=== PATIENT | female | born 1955 | race Caucasian/White ===

== ENCOUNTER 2016-03-18 19:58 | Inpatient (IN) | payer OTHER ==
[~2016-03-18] VITALS: Ht 175.3 cm; Wt 128.6 kg
[2016-03-18] MEDS ORDERED: METHYLPRED SOD SUCC 125 MG/2 ML VIAL ONE (20:17)
[2016-03-18] MEDS ORDERED: DUONEB INH ONE (20:21)
[2016-03-18] MEDS ORDERED: PHARMACY TO DOSE ANTIBIOTIC XX ONE (21:40)
[2016-03-18] MEDS ORDERED: SALINE FLUSH 10 ML FLUSH PRN (21:55)
[2016-03-18] MEDS ORDERED: BISACODYL 10 MG SUPP RECTAL PRN (21:55)
[2016-03-18] MEDS ORDERED: BISACODYL EC 5 MG TAB PO PRN (21:55)
[2016-03-19] VITALS (33 sets, daily range): BP systolic 104–180; RESP 14–38; TEMP 97.9–98.4; BMI 46.2
[2016-03-19] MEDS: DUONEB INH SCH ×7 (02:18→23:16)
[2016-03-19] MEDS: ENOXAPARIN 150 MG/ML SYR SUBQ SCH ×2 (02:29→11:35)
[2016-03-19] MEDS: METHYLPRED SOD SUCC 125 MG/2 ML VIAL IV SCH ×4 (02:35→18:17)
[2016-03-19] MEDS: SODIUM CHLORIDE 0.9% FLUSH BAG 500 ML IV SCH (06:00)
[2016-03-19] MEDS ORDERED: *PINK BRACELET XX ONE (06:40)
[2016-03-19] MEDS: *HOME MEDS KEPT IN PHARMACY* BIN 2 XX SCH ×2 (07:30→20:00)
[2016-03-19] MEDS: LEVOTHYROXINE 0.125 MG TAB PO SCH (07:33)
[2016-03-19] MEDS: SALINE FLUSH 10 ML FLUSH SCH ×2 (07:34→21:18)
[2016-03-19] MEDS: THEOPHYLLINE SR 200 MG CAP PO SCH (08:21)
[2016-03-19] MEDS: TUSSIONEX SUSP UDC PO SCH ×2 (08:21→21:17)
[2016-03-19] MEDS: FLUTICASONE 0.05% NA BTL NARE EACH SCH (08:22)
[2016-03-19] MEDS: CITALOPRAM 20 MG TAB PO SCH (08:22)
[2016-03-19] MEDS: MULTIVITS/MINERALS (THERAGRAN M) TAB PO SCH (08:22)
[2016-03-19] MEDS ORDERED: OPTIRAY 350 100 ML VIAL HMH IV ONE (11:11)
[2016-03-19] MEDS ORDERED: Furosemide 20 MG/2 ML VIAL IV ONE ×2 (12:50→15:00)
[2016-03-19] MEDS: ALPRAZOLAM 0.25 MG TAB PO SCH ×2 (18:19→21:17)
[2016-03-19] MEDS ORDERED: MISSING DOSE XX ONE (20:55)
[2016-03-19] MEDS ORDERED: NINTEDANIB 150 MG PO SCH ×2 (22:35→22:40)
[2016-03-19] MEDS: *HOME MEDS IN MED CART XX SCH (22:36)
[2016-03-19] MEDS: NINTEDANIB 150 MG PO SCH (22:53)
[2016-03-20] VITALS (31 sets, daily range): BP systolic 107–172; RESP 15–28; TEMP 97.5–98.2
[2016-03-20] MEDS: METHYLPRED SOD SUCC 125 MG/2 ML VIAL IV SCH ×6 (00:13→23:50)
[2016-03-20] MEDS: ENOXAPARIN 150 MG/ML SYR SUBQ SCH (00:13)
[2016-03-20] MEDS: ALPRAZOLAM 0.25 MG TAB PO SCH ×7 (00:14→23:50)
[2016-03-20] MEDS: NEB-ALBUTEROL 2.5 MG/3 ML INH PRN (03:19)
[2016-03-20] MEDS: LEVOTHYROXINE 0.125 MG TAB PO SCH (05:56)
[2016-03-20] MEDS: SODIUM CHLORIDE 0.9% FLUSH BAG 500 ML IV SCH (05:57)
[2016-03-20] MEDS: DUONEB INH SCH ×5 (06:24→22:59)
[2016-03-20] MEDS: *HOME MEDS IN MED CART XX SCH ×2 (08:00→20:00)
[2016-03-20] MEDS: CHLORASEPTIC 180 ML BTL PO PRN ×3 (08:15→11:48)
[2016-03-20] MEDS: THEOPHYLLINE SR 200 MG CAP PO SCH (08:53)
[2016-03-20] MEDS: TUSSIONEX SUSP UDC PO SCH ×2 (08:53→21:34)
[2016-03-20] MEDS: CITALOPRAM 20 MG TAB PO SCH (08:53)
[2016-03-20] MEDS: SALINE FLUSH 10 ML FLUSH SCH ×2 (08:54→21:34)
[2016-03-20] MEDS: FLUTICASONE 0.05% NA BTL NARE EACH SCH (08:54)
[2016-03-20] MEDS: MULTIVITS/MINERALS (THERAGRAN M) TAB PO SCH (08:54)
[2016-03-20] MEDS: NINTEDANIB 150 MG PO SCH ×2 (08:55→21:35)
[2016-03-20] MEDS: Furosemide 40 MG/4 ML VIAL IV SCH ×2 (10:14→17:06)
[2016-03-21] VITALS (28 sets, daily range): BP systolic 112–159; RESP 16–31; TEMP 97.5–98.5
[2016-03-21] MEDS: ALPRAZOLAM 0.25 MG TAB PO SCH ×5 (03:23→21:00)
[2016-03-21] MEDS: DUONEB INH SCH ×7 (03:26→23:02)
[2016-03-21] MEDS: SODIUM CHLORIDE 0.9% FLUSH BAG 500 ML IV SCH (06:00)
[2016-03-21] MEDS: METHYLPRED SOD SUCC 125 MG/2 ML VIAL IV SCH ×3 (06:03→17:29)
[2016-03-21] MEDS: SALINE FLUSH 10 ML FLUSH SCH ×2 (06:03→21:00)
[2016-03-21] MEDS: LEVOTHYROXINE 0.125 MG TAB PO SCH (06:03)
[2016-03-21] MEDS: *HOME MEDS IN MED CART XX SCH ×2 (08:12→19:31)
[2016-03-21] MEDS: Furosemide 40 MG/4 ML VIAL IV SCH ×2 (08:13→16:58)
[2016-03-21] MEDS: FLUTICASONE 0.05% NA BTL NARE EACH SCH (08:13)
[2016-03-21] MEDS: TUSSIONEX SUSP UDC PO SCH ×2 (08:14→21:00)
[2016-03-21] MEDS: MULTIVITS/MINERALS (THERAGRAN M) TAB PO SCH (08:14)
[2016-03-21] MEDS: NINTEDANIB 150 MG PO SCH ×2 (08:14→21:00)
[2016-03-21] MEDS: THEOPHYLLINE SR 200 MG CAP PO SCH (08:14)
[2016-03-21] MEDS: CITALOPRAM 20 MG TAB PO SCH (08:14)
[2016-03-21] MEDS: POLYETHYLENE GLYCOL 17 GM PACKET PO SCH ×2 (10:30→19:32)
[2016-03-21] MEDS: FLUCONAZOLE 100 MG TAB PO SCH (12:13)
[2016-03-21] MEDS: DOCUSATE SOD 100 MG CAP PO SCH ×2 (12:13→21:00)
[2016-03-21] MEDS: Ibuprofen 400 MG TAB PO PRN (12:15)
[2016-03-22] VITALS (29 sets, daily range): BP systolic 108–156; RESP 16–28; TEMP 97.5–98.6
[2016-03-22] MEDS: METHYLPRED SOD SUCC 125 MG/2 ML VIAL IV SCH ×4 (00:22→17:22)
[2016-03-22] MEDS: DUONEB INH SCH ×6 (02:29→23:13)
[2016-03-22] MEDS: SODIUM CHLORIDE 0.9% FLUSH BAG 500 ML IV SCH (04:47)
[2016-03-22] MEDS: LEVOTHYROXINE 0.125 MG TAB PO SCH (06:41)
[2016-03-22] MEDS: *HOME MEDS IN MED CART XX SCH ×2 (08:00→20:00)
[2016-03-22] MEDS ORDERED: CITALOPRAM 20 MG TAB PO SCH (09:00)
[2016-03-22] MEDS: POLYETHYLENE GLYCOL 17 GM PACKET PO SCH ×2 (09:00→20:34)
[2016-03-22] MEDS: SALINE FLUSH 10 ML FLUSH SCH ×2 (09:03→20:31)
[2016-03-22] MEDS: Furosemide 40 MG/4 ML VIAL IV SCH ×2 (09:04→17:22)
[2016-03-22] MEDS: NINTEDANIB 150 MG PO SCH ×2 (09:05→20:32)
[2016-03-22] MEDS: FLUCONAZOLE 100 MG TAB PO SCH (09:05)
[2016-03-22] MEDS: FLUTICASONE 0.05% NA BTL NARE EACH SCH (09:05)
[2016-03-22] MEDS: DOCUSATE SOD 100 MG CAP PO SCH ×2 (09:05→20:32)
[2016-03-22] MEDS: THEOPHYLLINE SR 200 MG CAP PO SCH (09:06)
[2016-03-22] MEDS: TUSSIONEX SUSP UDC PO SCH ×2 (09:06→20:35)
[2016-03-22] MEDS: ALPRAZOLAM 0.25 MG TAB PO SCH ×3 (09:06→20:35)
[2016-03-22] MEDS: MULTIVITS/MINERALS (THERAGRAN M) TAB PO SCH (09:06)
[2016-03-22] MEDS: Ibuprofen 400 MG TAB PO PRN ×2 (09:07→17:22)
[2016-03-22] MEDS ORDERED: PHARMACY TO DOSE ANTIBIOTIC XX SCH (10:45)
[2016-03-22] MEDS: NYSTATIN SUSP FOR CPD 120 ML, DIPHENHYDRAMINE (FOR COMPOUND) 120 ML, HYDROCORT SOD SUC ... SWISH.SWAL SCH ×12 (12:32→20:39)
[2016-03-22] MEDS: ACETAMINOPHEN 325 MG TAB PO PRN ×2 (12:33→20:38)
[2016-03-22] MEDS ORDERED: MISSING DOSE XX ONE (17:10)
[2016-03-23] VITALS (25 sets, daily range): BP systolic 120–163; RESP 16–30; TEMP 97.5–98.6
[2016-03-23] MEDS: METHYLPRED SOD SUCC 125 MG/2 ML VIAL IV SCH ×4 (00:46→18:05)
[2016-03-23] MEDS: DUONEB INH SCH ×6 (02:58→23:15)
[2016-03-23] MEDS: SODIUM CHLORIDE 0.9% FLUSH BAG 500 ML IV SCH (06:00)
[2016-03-23] MEDS: LEVOTHYROXINE 0.125 MG TAB PO SCH (06:19)
[2016-03-23] MEDS: SALINE FLUSH 10 ML FLUSH SCH ×2 (08:42→20:15)
[2016-03-23] MEDS: *HOME MEDS IN MED CART XX SCH ×2 (08:43→20:00)
[2016-03-23] MEDS: Furosemide 40 MG/4 ML VIAL IV SCH ×2 (08:43→18:04)
[2016-03-23] MEDS: CITALOPRAM 20 MG TAB PO SCH (08:44)
[2016-03-23] MEDS: NINTEDANIB 150 MG PO SCH ×2 (08:44→20:15)
[2016-03-23] MEDS: DOCUSATE SOD 100 MG CAP PO SCH ×2 (08:44→20:18)
[2016-03-23] MEDS: FLUTICASONE 0.05% NA BTL NARE EACH SCH (08:44)
[2016-03-23] MEDS: THEOPHYLLINE SR 200 MG CAP PO SCH (08:45)
[2016-03-23] MEDS: FLUCONAZOLE 100 MG TAB PO SCH (08:45)
[2016-03-23] MEDS: TUSSIONEX SUSP UDC PO SCH ×2 (08:45→20:16)
[2016-03-23] MEDS: MULTIVITS/MINERALS (THERAGRAN M) TAB PO SCH (08:45)
[2016-03-23] MEDS: NYSTATIN SUSP FOR CPD 120 ML, DIPHENHYDRAMINE (FOR COMPOUND) 120 ML, HYDROCORT SOD SUC ... SWISH.SWAL SCH ×15 (08:46→20:19)
[2016-03-23] MEDS: ALPRAZOLAM 0.25 MG TAB PO SCH ×3 (08:46→20:16)
[2016-03-23] MEDS: Ibuprofen 400 MG TAB PO PRN ×2 (08:47→20:17)
[2016-03-23] MEDS: POLYETHYLENE GLYCOL 17 GM PACKET PO SCH ×2 (09:00→20:53)
[2016-03-23] MEDS: GUAIFENESIN ER 600 MG TABCR PO SCH ×2 (10:34→20:17)
[2016-03-23] MEDS ORDERED: MISSING DOSE XX ONE ×2 (19:40→20:25)
[2016-03-24] VITALS (23 sets, daily range): BP systolic 111–170; RESP 17–29; TEMP 97.4–97.9
[2016-03-24] MEDS: METHYLPRED SOD SUCC 125 MG/2 ML VIAL IV SCH ×5 (00:09→23:41)
[2016-03-24] MEDS: ACETAMINOPHEN 325 MG TAB PO PRN (00:10)
[2016-03-24] MEDS: SODIUM CHLORIDE 0.9% FLUSH BAG 500 ML IV SCH (05:50)
[2016-03-24] MEDS: MODAFINIL 100 MG TAB PO SCH ×2 (06:06→11:39)
[2016-03-24] MEDS: LEVOTHYROXINE 0.125 MG TAB PO SCH (06:06)
[2016-03-24] MEDS: DUONEB INH SCH ×5 (06:27→22:38)
[2016-03-24] MEDS: SALINE FLUSH 10 ML FLUSH SCH ×2 (08:23→20:12)
[2016-03-24] MEDS: Furosemide 40 MG/4 ML VIAL IV SCH ×2 (08:24→17:05)
[2016-03-24] MEDS: NINTEDANIB 150 MG PO SCH ×2 (08:24→20:13)
[2016-03-24] MEDS: FLUTICASONE 0.05% NA BTL NARE EACH SCH (08:24)
[2016-03-24] MEDS: FLUCONAZOLE 100 MG TAB PO SCH (08:25)
[2016-03-24] MEDS: MULTIVITS/MINERALS (THERAGRAN M) TAB PO SCH (08:25)
[2016-03-24] MEDS: CITALOPRAM 20 MG TAB PO SCH (08:25)
[2016-03-24] MEDS: DOCUSATE SOD 100 MG CAP PO SCH ×2 (08:25→20:11)
[2016-03-24] MEDS: ALPRAZOLAM 0.25 MG TAB PO SCH ×3 (08:26→20:11)
[2016-03-24] MEDS: THEOPHYLLINE SR 200 MG CAP PO SCH (08:26)
[2016-03-24] MEDS: TUSSIONEX SUSP UDC PO SCH ×2 (08:26→20:13)
[2016-03-24] MEDS: NYSTATIN SUSP FOR CPD 120 ML, DIPHENHYDRAMINE (FOR COMPOUND) 120 ML, HYDROCORT SOD SUC ... SWISH.SWAL SCH ×12 (08:27→20:13)
[2016-03-24] MEDS: GUAIFENESIN ER 600 MG TABCR PO SCH ×2 (08:31→20:11)
[2016-03-24] MEDS: Ibuprofen 400 MG TAB PO PRN (08:32)
[2016-03-24] MEDS: POLYETHYLENE GLYCOL 17 GM PACKET PO SCH ×2 (09:00→20:14)
[2016-03-24] MEDS: *HOME MEDS IN MED CART XX SCH ×2 (09:30→19:56)
[2016-03-24] MEDS: CEFEPIME 1,000 MG in SODIUM CHLORIDE 0.9% 100 ML IV SCH ×3 (11:38→23:41)
[2016-03-24] MEDS: PANTOPRAZOLE 40 MG TAB PO SCH ×2 (11:39→17:04)
[2016-03-24] MEDS: NEB-BUDESONIDE 0.5 MG INH SCH ×2 (12:17→19:18)
[2016-03-24] MEDS: NEB-BROVANA 15 MCG/2 ML INH SCH ×2 (12:17→19:18)
[2016-03-24] MEDS: NEB-NACL 3% 4 ML NEBU INH SCH ×3 (12:19→22:38)
[2016-03-24] MEDS ORDERED: BISOPROLOL 5 MG TAB PO SCH (18:00)
[2016-03-24] MEDS ORDERED: BISOPROLOL 5 MG TAB PO ONE (19:10)
[2016-03-25] MEDS: SODIUM CHLORIDE 0.9% FLUSH BAG 500 ML IV SCH
[2016-03-25 00:10] VITALS: RESP 26
[2016-03-25 04:15] VITALS: BP_SYST 139; RESP 20; TEMP 97.8
[2016-03-25] MEDS: METHYLPRED SOD SUCC 125 MG/2 ML VIAL IV SCH ×3 (05:50→18:31)
[2016-03-25] MEDS: MODAFINIL 100 MG TAB PO SCH ×2 (05:50→11:28)
[2016-03-25] MEDS: PANTOPRAZOLE 40 MG TAB PO SCH ×2 (06:03→18:31)
[2016-03-25] MEDS: LEVOTHYROXINE 0.125 MG TAB PO SCH (06:04)
[2016-03-25] MEDS: NEB-NACL 3% 4 ML NEBU INH SCH ×4 (06:54→22:50)
[2016-03-25] MEDS: DUONEB INH SCH ×5 (06:54→22:50)
[2016-03-25] MEDS: NEB-BROVANA 15 MCG/2 ML INH SCH ×2 (06:54→18:46)
[2016-03-25] MEDS: NEB-BUDESONIDE 0.5 MG INH SCH ×2 (06:55→18:46)
[2016-03-25 07:33] VITALS: BP_SYST 124; RESP 22
[2016-03-25] MEDS: *HOME MEDS IN MED CART XX SCH ×2 (08:00→20:00)
[2016-03-25] MEDS: POLYETHYLENE GLYCOL 17 GM PACKET PO SCH ×2 (09:00→20:39)
[2016-03-25] MEDS: SALINE FLUSH 10 ML FLUSH SCH ×2 (09:04→20:40)
[2016-03-25] MEDS: CEFEPIME 1,000 MG in SODIUM CHLORIDE 0.9% 100 ML IV SCH (09:04)
[2016-03-25] MEDS: NYSTATIN SUSP FOR CPD 120 ML, DIPHENHYDRAMINE (FOR COMPOUND) 120 ML, HYDROCORT SOD SUC ... SWISH.SWAL SCH ×12 (09:05→20:38)
[2016-03-25] MEDS: FLUTICASONE 0.05% NA BTL NARE EACH SCH (09:05)
[2016-03-25] MEDS: Furosemide 40 MG/4 ML VIAL IV SCH ×2 (09:05→18:31)
[2016-03-25] MEDS: NINTEDANIB 150 MG PO SCH ×2 (09:05→20:38)
[2016-03-25] MEDS: TUSSIONEX SUSP UDC PO SCH ×2 (09:05→20:38)
[2016-03-25] MEDS: FLUCONAZOLE 100 MG TAB PO SCH (09:06)
[2016-03-25] MEDS: ALPRAZOLAM 0.25 MG TAB PO SCH ×3 (09:06→20:39)
[2016-03-25] MEDS: MULTIVITS/MINERALS (THERAGRAN M) TAB PO SCH (09:06)
[2016-03-25] MEDS: GUAIFENESIN ER 600 MG TABCR PO SCH ×2 (09:06→20:38)
[2016-03-25] MEDS: BISOPROLOL 5 MG TAB PO SCH (09:06)
[2016-03-25] MEDS: THEOPHYLLINE SR 200 MG CAP PO SCH (09:06)
[2016-03-25] MEDS: CITALOPRAM 20 MG TAB PO SCH (09:06)
[2016-03-25] MEDS: DOCUSATE SOD 100 MG CAP PO SCH ×2 (09:07→20:38)
[2016-03-25 11:28] VITALS: BP_SYST 140; RESP 20; TEMP 98.3
[2016-03-25 16:15] VITALS: BP_SYST 137; RESP 20; TEMP 98.6
[2016-03-25 19:38] VITALS: BP_SYST 128; RESP 20; TEMP 98
[2016-03-25] MEDS: MUPIROCIN 2% OINT 22 GM TOPICAL SCH (21:00)
[2016-03-26] VITALS (8 sets, daily range): BP systolic 107–131; RESP 20–32; TEMP 97.2–99.3
[2016-03-26] MEDS: SODIUM CHLORIDE 0.9% FLUSH BAG 500 ML IV SCH (00:32)
[2016-03-26] MEDS: METHYLPRED SOD SUCC 125 MG/2 ML VIAL IV SCH ×3 (00:32→16:33)
[2016-03-26] MEDS: PANTOPRAZOLE 40 MG TAB PO SCH ×2 (04:56→16:32)
[2016-03-26] MEDS: MODAFINIL 100 MG TAB PO SCH ×2 (04:56→12:26)
[2016-03-26] MEDS: LEVOTHYROXINE 0.125 MG TAB PO SCH (04:56)
[2016-03-26] MEDS: DUONEB INH SCH ×5 (07:08→22:26)
[2016-03-26] MEDS: NEB-BUDESONIDE 0.5 MG INH SCH ×2 (07:08→19:08)
[2016-03-26] MEDS: NEB-NACL 3% 4 ML NEBU INH SCH ×4 (07:08→22:26)
[2016-03-26] MEDS: NEB-BROVANA 15 MCG/2 ML INH SCH ×2 (07:08→19:08)
[2016-03-26] MEDS: *HOME MEDS IN MED CART XX SCH ×2 (08:00→20:00)
[2016-03-26] MEDS: POLYETHYLENE GLYCOL 17 GM PACKET PO SCH ×2 (09:00→20:57)
[2016-03-26] MEDS: Furosemide 40 MG/4 ML VIAL IV SCH ×2 (09:48→16:33)
[2016-03-26] MEDS: FLUTICASONE 0.05% NA BTL NARE EACH SCH (09:49)
[2016-03-26] MEDS: SALINE FLUSH 10 ML FLUSH SCH ×2 (09:49→20:00)
[2016-03-26] MEDS: NINTEDANIB 150 MG PO SCH ×2 (09:50→20:44)
[2016-03-26] MEDS: MUPIROCIN 2% OINT 22 GM TOPICAL SCH ×2 (09:52→20:45)
[2016-03-26] MEDS: BISOPROLOL 5 MG TAB PO SCH (09:52)
[2016-03-26] MEDS: NYSTATIN SUSP FOR CPD 120 ML, DIPHENHYDRAMINE (FOR COMPOUND) 120 ML, HYDROCORT SOD SUC ... SWISH.SWAL SCH ×12 (09:52→20:44)
[2016-03-26] MEDS: GUAIFENESIN ER 600 MG TABCR PO SCH ×2 (09:53→20:45)
[2016-03-26] MEDS: THEOPHYLLINE SR 200 MG CAP PO SCH (09:53)
[2016-03-26] MEDS: CITALOPRAM 20 MG TAB PO SCH (09:53)
[2016-03-26] MEDS: DOCUSATE SOD 100 MG CAP PO SCH ×2 (09:54→20:45)
[2016-03-26] MEDS: MULTIVITS/MINERALS (THERAGRAN M) TAB PO SCH (09:54)
[2016-03-26] MEDS: FLUCONAZOLE 100 MG TAB PO SCH (09:54)
[2016-03-26] MEDS: ALPRAZOLAM 0.25 MG TAB PO SCH ×3 (10:28→20:45)
[2016-03-26] MEDS: TUSSIONEX SUSP UDC PO SCH ×2 (10:28→20:45)
[2016-03-26] MEDS: ACETAMINOPHEN 325 MG TAB PO PRN (12:31)
[2016-03-26] MEDS ORDERED: MISSING DOSE XX ONE (16:25)
[2016-03-26] MEDS: Ibuprofen 400 MG TAB PO PRN (16:51)
[2016-03-27] VITALS (7 sets, daily range): BP systolic 119–141; RESP 18–24; TEMP 97.7–98.8
[2016-03-27] MEDS: METHYLPRED SOD SUCC 125 MG/2 ML VIAL IV SCH ×3 (00:28→16:45)
[2016-03-27] MEDS: SODIUM CHLORIDE 0.9% FLUSH BAG 500 ML IV SCH (06:16)
[2016-03-27] MEDS: LEVOTHYROXINE 0.125 MG TAB PO SCH (06:16)
[2016-03-27] MEDS: MODAFINIL 100 MG TAB PO SCH ×2 (06:16→12:53)
[2016-03-27] MEDS: PANTOPRAZOLE 40 MG TAB PO SCH ×2 (06:16→16:45)
[2016-03-27] MEDS: NEB-NACL 3% 4 ML NEBU INH SCH ×4 (07:11→22:13)
[2016-03-27] MEDS: NEB-BUDESONIDE 0.5 MG INH SCH ×2 (07:11→18:16)
[2016-03-27] MEDS: DUONEB INH SCH ×5 (07:11→22:13)
[2016-03-27] MEDS: NEB-BROVANA 15 MCG/2 ML INH SCH ×2 (07:11→18:16)
[2016-03-27] MEDS: *HOME MEDS IN MED CART XX SCH ×2 (08:00→20:00)
[2016-03-27] MEDS ORDERED: MISSING DOSE XX ONE ×3 (08:45→16:50)
[2016-03-27] MEDS: BISOPROLOL 5 MG TAB PO SCH (08:54)
[2016-03-27] MEDS: THEOPHYLLINE SR 200 MG CAP PO SCH (08:54)
[2016-03-27] MEDS: ALPRAZOLAM 0.25 MG TAB PO SCH ×3 (08:54→20:44)
[2016-03-27] MEDS: FLUCONAZOLE 100 MG TAB PO SCH (08:55)
[2016-03-27] MEDS: MULTIVITS/MINERALS (THERAGRAN M) TAB PO SCH (08:55)
[2016-03-27] MEDS: CITALOPRAM 20 MG TAB PO SCH (08:55)
[2016-03-27] MEDS: NYSTATIN SUSP FOR CPD 120 ML, DIPHENHYDRAMINE (FOR COMPOUND) 120 ML, HYDROCORT SOD SUC ... SWISH.SWAL SCH ×12 (08:55→20:41)
[2016-03-27] MEDS: FLUTICASONE 0.05% NA BTL NARE EACH SCH (08:55)
[2016-03-27] MEDS: GUAIFENESIN ER 600 MG TABCR PO SCH ×2 (08:55→20:41)
[2016-03-27] MEDS: DOCUSATE SOD 100 MG CAP PO SCH ×2 (08:55→20:41)
[2016-03-27] MEDS: TUSSIONEX SUSP UDC PO SCH ×2 (08:55→20:44)
[2016-03-27] MEDS: NINTEDANIB 150 MG PO SCH ×2 (08:56→20:40)
[2016-03-27] MEDS: SALINE FLUSH 10 ML FLUSH SCH ×2 (08:57→20:00)
[2016-03-27] MEDS: Furosemide 40 MG/4 ML VIAL IV SCH ×2 (08:57→16:49)
[2016-03-27] MEDS: POLYETHYLENE GLYCOL 17 GM PACKET PO SCH ×2 (08:57→20:42)
[2016-03-27] MEDS: MUPIROCIN 2% OINT 22 GM TOPICAL SCH ×2 (09:00→20:45)
[2016-03-27] MEDS: Ibuprofen 400 MG TAB PO PRN (15:34)
[2016-03-27] MEDS: Docosanol 10% Cream 2 Gm TOPICAL SCH ×2 (18:44→20:42)
[2016-03-28] VITALS (7 sets, daily range): BP systolic 109–146; RESP 18–24; TEMP 97.5–98.6
[2016-03-28] MEDS: METHYLPRED SOD SUCC 125 MG/2 ML VIAL IV SCH ×3 (00:47→16:57)
[2016-03-28] MEDS: PANTOPRAZOLE 40 MG TAB PO SCH ×2 (06:12→16:57)
[2016-03-28] MEDS: SODIUM CHLORIDE 0.9% FLUSH BAG 500 ML IV SCH (06:12)
[2016-03-28] MEDS: LEVOTHYROXINE 0.125 MG TAB PO SCH (06:12)
[2016-03-28] MEDS: MODAFINIL 100 MG TAB PO SCH ×2 (06:12→12:23)
[2016-03-28] MEDS: Docosanol 10% Cream 2 Gm TOPICAL SCH ×5 (06:14→21:08)
[2016-03-28] MEDS: DUONEB INH SCH ×5 (07:42→22:45)
[2016-03-28] MEDS: NEB-BUDESONIDE 0.5 MG INH SCH ×2 (07:42→19:42)
[2016-03-28] MEDS: NEB-BROVANA 15 MCG/2 ML INH SCH ×2 (07:42→19:42)
[2016-03-28] MEDS: NEB-NACL 3% 4 ML NEBU INH SCH ×4 (07:42→22:44)
[2016-03-28] MEDS: *HOME MEDS IN MED CART XX SCH ×2 (08:00→21:06)
[2016-03-28] MEDS: SALINE FLUSH 10 ML FLUSH SCH ×2 (08:10→21:05)
[2016-03-28] MEDS: Furosemide 40 MG/4 ML VIAL IV SCH ×2 (08:11→16:57)
[2016-03-28] MEDS: FLUTICASONE 0.05% NA BTL NARE EACH SCH (08:11)
[2016-03-28] MEDS: NINTEDANIB 150 MG PO SCH ×2 (08:11→21:04)
[2016-03-28] MEDS: CITALOPRAM 20 MG TAB PO SCH (08:12)
[2016-03-28] MEDS: FLUCONAZOLE 100 MG TAB PO SCH (08:12)
[2016-03-28] MEDS: POLYETHYLENE GLYCOL 17 GM PACKET PO SCH ×2 (08:12→21:06)
[2016-03-28] MEDS: DOCUSATE SOD 100 MG CAP PO SCH ×2 (08:12→21:10)
[2016-03-28] MEDS: MULTIVITS/MINERALS (THERAGRAN M) TAB PO SCH (08:13)
[2016-03-28] MEDS: TUSSIONEX SUSP UDC PO SCH ×2 (08:13→21:06)
[2016-03-28] MEDS: ALPRAZOLAM 0.25 MG TAB PO SCH ×3 (08:13→21:06)
[2016-03-28] MEDS: GUAIFENESIN ER 600 MG TABCR PO SCH ×2 (08:13→21:07)
[2016-03-28] MEDS: BISOPROLOL 5 MG TAB PO SCH (08:13)
[2016-03-28] MEDS: THEOPHYLLINE SR 200 MG CAP PO SCH (08:13)
[2016-03-28] MEDS: MUPIROCIN 2% OINT 22 GM TOPICAL SCH ×2 (08:14→21:07)
[2016-03-28] MEDS: NYSTATIN SUSP FOR CPD 120 ML, DIPHENHYDRAMINE (FOR COMPOUND) 120 ML, HYDROCORT SOD SUC ... SWISH.SWAL SCH ×12 (08:14→21:04)
[2016-03-28] MEDS: Ibuprofen 400 MG TAB PO PRN (17:00)
[2016-03-28] MEDS: ACETAMINOPHEN 325 MG TAB PO PRN (18:30)
[2016-03-29] VITALS (7 sets, daily range): BP systolic 111–146; RESP 18–22; TEMP 97.4–98.2
[2016-03-29] MEDS: METHYLPRED SOD SUCC 125 MG/2 ML VIAL IV SCH ×4 (00:08→23:04)
[2016-03-29] MEDS: PANTOPRAZOLE 40 MG TAB PO SCH ×2 (06:28→16:27)
[2016-03-29] MEDS: SODIUM CHLORIDE 0.9% FLUSH BAG 500 ML IV SCH (06:28)
[2016-03-29] MEDS: MODAFINIL 100 MG TAB PO SCH ×2 (06:28→11:29)
[2016-03-29] MEDS: LEVOTHYROXINE 0.125 MG TAB PO SCH (06:28)
[2016-03-29] MEDS: Docosanol 10% Cream 2 Gm TOPICAL SCH ×5 (06:29→21:00)
[2016-03-29] MEDS: DUONEB INH SCH ×5 (07:35→23:03)
[2016-03-29] MEDS: NEB-BUDESONIDE 0.5 MG INH SCH ×2 (07:35→19:40)
[2016-03-29] MEDS: NEB-BROVANA 15 MCG/2 ML INH SCH ×2 (07:35→19:40)
[2016-03-29] MEDS: NEB-NACL 3% 4 ML NEBU INH SCH ×4 (07:35→23:02)
[2016-03-29] MEDS: *HOME MEDS IN MED CART XX SCH ×2 (08:00→20:00)
[2016-03-29] MEDS: SALINE FLUSH 10 ML FLUSH SCH ×2 (08:26→20:58)
[2016-03-29] MEDS: POLYETHYLENE GLYCOL 17 GM PACKET PO SCH ×2 (08:26→21:00)
[2016-03-29] MEDS: FLUTICASONE 0.05% NA BTL NARE EACH SCH (08:27)
[2016-03-29] MEDS: Furosemide 40 MG/4 ML VIAL IV SCH ×2 (08:27→16:28)
[2016-03-29] MEDS: TUSSIONEX SUSP UDC PO SCH ×2 (08:27→21:00)
[2016-03-29] MEDS: NYSTATIN SUSP FOR CPD 120 ML, DIPHENHYDRAMINE (FOR COMPOUND) 120 ML, HYDROCORT SOD SUC ... SWISH.SWAL SCH ×12 (08:27→21:00)
[2016-03-29] MEDS: THEOPHYLLINE SR 200 MG CAP PO SCH (08:28)
[2016-03-29] MEDS: ALPRAZOLAM 0.25 MG TAB PO SCH ×3 (08:28→21:01)
[2016-03-29] MEDS: DOCUSATE SOD 100 MG CAP PO SCH ×2 (08:28→21:01)
[2016-03-29] MEDS: CITALOPRAM 20 MG TAB PO SCH (08:28)
[2016-03-29] MEDS: GUAIFENESIN ER 600 MG TABCR PO SCH ×2 (08:28→21:01)
[2016-03-29] MEDS: MULTIVITS/MINERALS (THERAGRAN M) TAB PO SCH (08:28)
[2016-03-29] MEDS: BISOPROLOL 5 MG TAB PO SCH (08:28)
[2016-03-29] MEDS: MUPIROCIN 2% OINT 22 GM TOPICAL SCH ×2 (08:29→20:59)
[2016-03-29] MEDS: NINTEDANIB 150 MG PO SCH ×2 (08:29→20:59)
[2016-03-29] MEDS ORDERED: MISSING DOSE XX ONE ×2 (11:00→16:05)
[2016-03-29] MEDS: Ibuprofen 400 MG TAB PO PRN (11:28)
[2016-03-29] MEDS ORDERED: BISACODYL EC 5 MG TAB PO PRN (15:55)
[2016-03-29] MEDS ORDERED: BISACODYL EC 5 MG TAB PO ONE (15:55)
[2016-03-29] MEDS: ACETAMINOPHEN 325 MG TAB PO PRN (21:09)
[2016-03-30 00:10] VITALS: RESP 24
[2016-03-30 04:29] VITALS: BP_SYST 140; RESP 22; TEMP 97.6
[2016-03-30] MEDS: LEVOTHYROXINE 0.125 MG TAB PO SCH (05:43)
[2016-03-30] MEDS: SODIUM CHLORIDE 0.9% FLUSH BAG 500 ML IV SCH (05:43)
[2016-03-30] MEDS: PANTOPRAZOLE 40 MG TAB PO SCH ×2 (05:43→16:09)
[2016-03-30] MEDS: Docosanol 10% Cream 2 Gm TOPICAL SCH ×5 (05:43→20:22)
[2016-03-30] MEDS: MODAFINIL 100 MG TAB PO SCH ×2 (05:43→12:08)
[2016-03-30] MEDS: *HOME MEDS IN MED CART XX SCH ×2 (07:22→20:00)
[2016-03-30] MEDS: DUONEB INH SCH ×5 (07:26→23:12)
[2016-03-30] MEDS: NEB-BUDESONIDE 0.5 MG INH SCH ×2 (07:27→18:38)
[2016-03-30] MEDS: NEB-BROVANA 15 MCG/2 ML INH SCH ×2 (07:27→18:39)
[2016-03-30] MEDS: NEB-NACL 3% 4 ML NEBU INH SCH ×4 (07:27→23:12)
[2016-03-30] MEDS: MAG HYDROX 30 ML UDC PO PRN (07:29)
[2016-03-30] MEDS: Furosemide 40 MG/4 ML VIAL IV SCH ×2 (07:30→16:10)
[2016-03-30] MEDS: METHYLPRED SOD SUCC 125 MG/2 ML VIAL IV SCH ×3 (07:31→23:38)
[2016-03-30] MEDS: SALINE FLUSH 10 ML FLUSH SCH ×2 (07:32→20:00)
[2016-03-30 07:49] VITALS: BP_SYST 145; RESP 20; TEMP 97.6
[2016-03-30] MEDS: NYSTATIN SUSP FOR CPD 120 ML, DIPHENHYDRAMINE (FOR COMPOUND) 120 ML, HYDROCORT SOD SUC ... SWISH.SWAL SCH ×15 (09:00→20:21)
[2016-03-30] MEDS: MULTIVITS/MINERALS (THERAGRAN M) TAB PO SCH (09:00)
[2016-03-30] MEDS: TUSSIONEX SUSP UDC PO SCH ×2 (10:19→20:21)
[2016-03-30] MEDS: ALPRAZOLAM 0.25 MG TAB PO SCH ×3 (10:19→20:21)
[2016-03-30] MEDS: NINTEDANIB 150 MG PO SCH ×2 (10:19→20:20)
[2016-03-30] MEDS: FLUTICASONE 0.05% NA BTL NARE EACH SCH (10:19)
[2016-03-30] MEDS: BISOPROLOL 5 MG TAB PO SCH (10:20)
[2016-03-30] MEDS: GUAIFENESIN ER 600 MG TABCR PO SCH ×2 (10:21→20:21)
[2016-03-30] MEDS: DOCUSATE SOD 100 MG CAP PO SCH ×2 (10:21→20:21)
[2016-03-30] MEDS: CITALOPRAM 20 MG TAB PO SCH (10:21)
[2016-03-30] MEDS: THEOPHYLLINE SR 200 MG CAP PO SCH (10:21)
[2016-03-30] MEDS: MUPIROCIN 2% OINT 22 GM TOPICAL SCH ×2 (10:22→20:22)
[2016-03-30 11:57] VITALS: BP_SYST 132; RESP 20; TEMP 97.7
[2016-03-30] MEDS ORDERED: MISSING DOSE XX ONE (12:05)
[2016-03-30] MEDS: ACETAMINOPHEN 325 MG TAB PO PRN (12:16)
[2016-03-30] MEDS: POLYETHYLENE GLYCOL 17 GM PACKET PO SCH ×2 (15:08→20:21)
[2016-03-30 15:40] VITALS: BP_SYST 127; RESP 20; TEMP 97.5
[2016-03-30] MEDS: HYDROCORT 2.5% CR 30 GM RECTAL SCH (17:39)
[2016-03-30 20:08] VITALS: BP_SYST 136; RESP 18; TEMP 98.5
[2016-03-30] MEDS: TRAZODONE 50 MG TAB PO SCH (20:21)
[2016-03-31] VITALS (8 sets, daily range): BP systolic 115–137; RESP 18–42; TEMP 97.9–98.5
[2016-03-31] MEDS: PANTOPRAZOLE 40 MG TAB PO SCH ×2 (05:52→17:11)
[2016-03-31] MEDS: LEVOTHYROXINE 0.125 MG TAB PO SCH (05:52)
[2016-03-31] MEDS: SODIUM CHLORIDE 0.9% FLUSH BAG 500 ML IV SCH (05:52)
[2016-03-31] MEDS: MODAFINIL 100 MG TAB PO SCH ×2 (05:52→12:18)
[2016-03-31] MEDS: Docosanol 10% Cream 2 Gm TOPICAL SCH ×5 (05:54→22:00)
[2016-03-31] MEDS: NEB-BROVANA 15 MCG/2 ML INH SCH ×2 (07:30→19:46)
[2016-03-31] MEDS: NEB-BUDESONIDE 0.5 MG INH SCH ×2 (07:30→19:46)
[2016-03-31] MEDS: NEB-NACL 3% 4 ML NEBU INH SCH ×3 (07:30→19:46)
[2016-03-31] MEDS: DUONEB INH SCH ×4 (07:30→19:46)
[2016-03-31] MEDS: SALINE FLUSH 10 ML FLUSH SCH ×2 (08:00→20:25)
[2016-03-31] MEDS: *HOME MEDS IN MED CART XX SCH ×2 (08:00→20:26)
[2016-03-31] MEDS: MAG HYDROX 30 ML UDC PO PRN (08:15)
[2016-03-31] MEDS: CITALOPRAM 20 MG TAB PO SCH (08:15)
[2016-03-31] MEDS: BISOPROLOL 5 MG TAB PO SCH (08:15)
[2016-03-31] MEDS: TUSSIONEX SUSP UDC PO SCH ×2 (08:15→20:32)
[2016-03-31] MEDS: ALPRAZOLAM 0.25 MG TAB PO SCH ×3 (08:15→20:32)
[2016-03-31] MEDS: THEOPHYLLINE SR 100 MG CAP PO SCH ×2 (08:16→08:30)
[2016-03-31] MEDS: HYDROCORT 2.5% CR 30 GM RECTAL SCH ×2 (08:16→20:33)
[2016-03-31] MEDS: GUAIFENESIN ER 600 MG TABCR PO SCH ×2 (08:16→20:30)
[2016-03-31] MEDS: POLYETHYLENE GLYCOL 17 GM PACKET PO SCH ×2 (08:16→20:29)
[2016-03-31] MEDS: DOCUSATE SOD 100 MG CAP PO SCH ×2 (08:16→20:28)
[2016-03-31] MEDS: Furosemide 40 MG/4 ML VIAL IV SCH ×2 (08:17→17:10)
[2016-03-31] MEDS: FLUTICASONE 0.05% NA BTL NARE EACH SCH (08:17)
[2016-03-31] MEDS: MUPIROCIN 2% OINT 22 GM TOPICAL SCH (08:18)
[2016-03-31] MEDS: NINTEDANIB 150 MG PO SCH ×2 (08:18→20:27)
[2016-03-31] MEDS: METHYLPRED SOD SUCC 125 MG/2 ML VIAL IV SCH ×3 (08:18→23:46)
[2016-03-31] MEDS: NYSTATIN SUSP FOR CPD 120 ML, DIPHENHYDRAMINE (FOR COMPOUND) 120 ML, HYDROCORT SOD SUC ... SWISH.SWAL SCH ×12 (08:19→20:35)
[2016-03-31] MEDS: MULTIVITS/MINERALS (THERAGRAN M) TAB PO SCH (09:00)
[2016-03-31] MEDS: TRAZODONE 50 MG TAB PO SCH (20:29)
[2016-04-01] VITALS (8 sets, daily range): BP systolic 107–136; RESP 18–26; TEMP 97.3–98.6
[2016-04-01] MEDS: Docosanol 10% Cream 2 Gm TOPICAL SCH ×5 (06:00→22:00)
[2016-04-01] MEDS: SODIUM CHLORIDE 0.9% FLUSH BAG 500 ML IV SCH (06:31)
[2016-04-01] MEDS: MODAFINIL 100 MG TAB PO SCH ×2 (06:32→12:18)
[2016-04-01] MEDS: PANTOPRAZOLE 40 MG TAB PO SCH ×2 (06:33→15:14)
[2016-04-01] MEDS: LEVOTHYROXINE 0.125 MG TAB PO SCH (06:33)
[2016-04-01] MEDS: NEB-NACL 3% 4 ML NEBU INH SCH ×4 (06:39→18:23)
[2016-04-01] MEDS: NEB-BROVANA 15 MCG/2 ML INH SCH ×2 (06:39→18:23)
[2016-04-01] MEDS: DUONEB INH SCH ×5 (06:39→18:23)
[2016-04-01] MEDS: NEB-BUDESONIDE 0.5 MG INH SCH ×2 (06:39→18:23)
[2016-04-01] MEDS: *HOME MEDS IN MED CART XX SCH ×2 (08:00→20:31)
[2016-04-01] MEDS: MULTIVITS/MINERALS (THERAGRAN M) TAB PO SCH (09:00)
[2016-04-01] MEDS: NYSTATIN SUSP FOR CPD 120 ML, DIPHENHYDRAMINE (FOR COMPOUND) 120 ML, HYDROCORT SOD SUC ... SWISH.SWAL SCH ×12 (09:00→20:37)
[2016-04-01] MEDS: SALINE FLUSH 10 ML FLUSH SCH ×2 (09:50→20:30)
[2016-04-01] MEDS: BISOPROLOL 5 MG TAB PO SCH (09:53)
[2016-04-01] MEDS: METHYLPRED SOD SUCC 125 MG/2 ML VIAL IV SCH ×2 (09:53→15:14)
[2016-04-01] MEDS: TUSSIONEX SUSP UDC PO SCH ×2 (09:53→20:35)
[2016-04-01] MEDS: Furosemide 40 MG/4 ML VIAL IV SCH ×2 (09:55→17:53)
[2016-04-01] MEDS: DOCUSATE SOD 100 MG CAP PO SCH ×2 (09:55→20:32)
[2016-04-01] MEDS: GUAIFENESIN ER 600 MG TABCR PO SCH ×2 (09:55→20:34)
[2016-04-01] MEDS: POLYETHYLENE GLYCOL 17 GM PACKET PO SCH ×2 (09:56→20:34)
[2016-04-01] MEDS: NINTEDANIB 150 MG PO SCH ×2 (09:56→20:32)
[2016-04-01] MEDS: CITALOPRAM 20 MG TAB PO SCH (09:56)
[2016-04-01] MEDS: FLUTICASONE 0.05% NA BTL NARE EACH SCH (09:56)
[2016-04-01] MEDS: ALPRAZOLAM 0.25 MG TAB PO SCH ×3 (09:57→20:37)
[2016-04-01] MEDS: HYDROCORT 2.5% CR 30 GM RECTAL SCH (09:57)
[2016-04-01] MEDS: THEOPHYLLINE SR 100 MG CAP PO SCH (10:09)
[2016-04-01] MEDS ORDERED: MISSING DOSE XX ONE (10:15)
[2016-04-01] MEDS: TRAZODONE 50 MG TAB PO SCH (20:33)
[2016-04-02] VITALS (7 sets, daily range): BP systolic 112–124; RESP 18–30; TEMP 97.9–98.5
[2016-04-02] MEDS: DUONEB INH SCH ×6 (00:07→23:04)
[2016-04-02] MEDS: NEB-NACL 3% 4 ML NEBU INH SCH ×5 (00:07→23:04)
[2016-04-02] MEDS: METHYLPRED SOD SUCC 125 MG/2 ML VIAL IV SCH ×4 (01:13→21:44)
[2016-04-02] MEDS: SODIUM CHLORIDE 0.9% FLUSH BAG 500 ML IV SCH (06:00)
[2016-04-02] MEDS: Docosanol 10% Cream 2 Gm TOPICAL SCH ×5 (06:00→22:00)
[2016-04-02] MEDS: PANTOPRAZOLE 40 MG TAB PO SCH ×2 (06:50→16:20)
[2016-04-02] MEDS: MODAFINIL 100 MG TAB PO SCH ×2 (06:50→11:54)
[2016-04-02] MEDS: LEVOTHYROXINE 0.125 MG TAB PO SCH (06:50)
[2016-04-02] MEDS: HYDROCORT 2.5% CR 30 GM RECTAL SCH ×3 (06:51→21:13)
[2016-04-02] MEDS: NEB-BROVANA 15 MCG/2 ML INH SCH ×2 (06:53→19:26)
[2016-04-02] MEDS: NEB-BUDESONIDE 0.5 MG INH SCH ×2 (06:53→19:26)
[2016-04-02] MEDS: *HOME MEDS IN MED CART XX SCH ×2 (07:53→20:00)
[2016-04-02] MEDS: NYSTATIN SUSP FOR CPD 120 ML, DIPHENHYDRAMINE (FOR COMPOUND) 120 ML, HYDROCORT SOD SUC ... SWISH.SWAL SCH ×12 (09:00→21:11)
[2016-04-02] MEDS: MAG HYDROX 30 ML UDC PO PRN (09:18)
[2016-04-02] MEDS: DOCUSATE SOD 100 MG CAP PO SCH ×2 (09:19→21:08)
[2016-04-02] MEDS: CITALOPRAM 20 MG TAB PO SCH (09:19)
[2016-04-02] MEDS: ALPRAZOLAM 0.25 MG TAB PO SCH ×3 (09:20→21:11)
[2016-04-02] MEDS: BISOPROLOL 5 MG TAB PO SCH (09:20)
[2016-04-02] MEDS: MULTIVITS/MINERALS (THERAGRAN M) TAB PO SCH (09:20)
[2016-04-02] MEDS: POLYETHYLENE GLYCOL 17 GM PACKET PO SCH ×2 (09:21→21:09)
[2016-04-02] MEDS: ACETAMINOPHEN 325 MG TAB PO PRN (09:21)
[2016-04-02] MEDS: THEOPHYLLINE SR 100 MG CAP PO SCH (09:22)
[2016-04-02] MEDS: FLUTICASONE 0.05% NA BTL NARE EACH SCH (09:23)
[2016-04-02] MEDS: TUSSIONEX SUSP UDC PO SCH ×2 (09:23→21:10)
[2016-04-02] MEDS: GUAIFENESIN ER 600 MG TABCR PO SCH ×2 (09:24→21:00)
[2016-04-02] MEDS: Furosemide 40 MG/4 ML VIAL IV SCH ×2 (09:24→16:20)
[2016-04-02] MEDS: NINTEDANIB 150 MG PO SCH ×2 (09:25→21:08)
[2016-04-02] MEDS: SALINE FLUSH 10 ML FLUSH SCH ×2 (09:30→21:40)
[2016-04-02] MEDS: TRAZODONE 50 MG TAB PO SCH (21:09)
[2016-04-03 00:31] VITALS: BP_SYST 122; RESP 19; TEMP 98.5
[2016-04-03] MEDS: NEB-ALBUTEROL 2.5 MG/3 ML INH PRN (03:37)
[2016-04-03 03:51] VITALS: BP_SYST 126; RESP 18; TEMP 98.6
[2016-04-03] MEDS: SODIUM CHLORIDE 0.9% FLUSH BAG 500 ML IV SCH (06:00)
[2016-04-03] MEDS: Docosanol 10% Cream 2 Gm TOPICAL SCH ×5 (06:00→22:00)
[2016-04-03] MEDS: NEB-BUDESONIDE 0.5 MG INH SCH ×2 (07:46→20:32)
[2016-04-03] MEDS: NEB-NACL 3% 4 ML NEBU INH SCH ×4 (07:46→23:27)
[2016-04-03] MEDS: DUONEB INH SCH ×5 (07:46→23:26)
[2016-04-03] MEDS: NEB-BROVANA 15 MCG/2 ML INH SCH ×2 (07:46→20:32)
[2016-04-03] MEDS: LEVOTHYROXINE 0.125 MG TAB PO SCH (07:48)
[2016-04-03] MEDS: PANTOPRAZOLE 40 MG TAB PO SCH ×2 (07:48→16:24)
[2016-04-03] MEDS: MODAFINIL 100 MG TAB PO SCH ×2 (07:49→12:25)
[2016-04-03] MEDS: *HOME MEDS IN MED CART XX SCH ×2 (08:00→20:00)
[2016-04-03 08:02] VITALS: BP_SYST 102; RESP 18; TEMP 96.6
[2016-04-03] MEDS: NYSTATIN SUSP FOR CPD 120 ML, DIPHENHYDRAMINE (FOR COMPOUND) 120 ML, HYDROCORT SOD SUC ... SWISH.SWAL SCH ×12 (09:00→20:07)
[2016-04-03] MEDS: TUSSIONEX SUSP UDC PO SCH ×2 (09:17→20:18)
[2016-04-03] MEDS: MULTIVITS/MINERALS (THERAGRAN M) TAB PO SCH (09:18)
[2016-04-03] MEDS: ALPRAZOLAM 0.25 MG TAB PO SCH ×3 (09:18→20:18)
[2016-04-03] MEDS: BISOPROLOL 5 MG TAB PO SCH (09:18)
[2016-04-03] MEDS: CITALOPRAM 20 MG TAB PO SCH (09:18)
[2016-04-03] MEDS: THEOPHYLLINE SR 100 MG CAP PO SCH (09:18)
[2016-04-03] MEDS: GUAIFENESIN ER 600 MG TABCR PO SCH ×2 (09:18→20:19)
[2016-04-03] MEDS: DOCUSATE SOD 100 MG CAP PO SCH ×2 (09:18→20:20)
[2016-04-03] MEDS: NINTEDANIB 150 MG PO SCH ×2 (09:19→20:18)
[2016-04-03] MEDS: HYDROCORT 2.5% CR 30 GM RECTAL SCH ×2 (09:20→20:21)
[2016-04-03] MEDS: FLUTICASONE 0.05% NA BTL NARE EACH SCH (09:20)
[2016-04-03] MEDS: POLYETHYLENE GLYCOL 17 GM PACKET PO SCH ×2 (09:21→20:20)
[2016-04-03] MEDS: Furosemide 40 MG/4 ML VIAL IV SCH (09:26)
[2016-04-03] MEDS: METHYLPRED SOD SUCC 125 MG/2 ML VIAL IV SCH (09:26)
[2016-04-03] MEDS: SALINE FLUSH 10 ML FLUSH SCH ×2 (09:26→20:20)
[2016-04-03] MEDS ORDERED: Furosemide 20 MG/2 ML VIAL IV SCH (12:00)
[2016-04-03] MEDS: Furosemide 40 MG TAB PO SCH (12:26)
[2016-04-03 12:34] VITALS: BP_SYST 128; RESP 22; TEMP 96.2
[2016-04-03] MEDS: Furosemide 80 MG TAB PO SCH (16:24)
[2016-04-03 16:51] VITALS: BP_SYST 104; RESP 20; TEMP 97.3
[2016-04-03 19:10] VITALS: BP_SYST 132; RESP 30; TEMP 97.1
[2016-04-03] MEDS: PREDNISONE 20 MG TAB PO SCH (20:19)
[2016-04-03] MEDS: TRAZODONE 50 MG TAB PO SCH (20:19)
[2016-04-04] VITALS (8 sets, daily range): BP systolic 104–128; RESP 20–69; TEMP 97–98.3
[2016-04-04] MEDS: Docosanol 10% Cream 2 Gm TOPICAL SCH ×2 (05:17→10:00)
[2016-04-04] MEDS: SODIUM CHLORIDE 0.9% FLUSH BAG 500 ML IV SCH (05:19)
[2016-04-04] MEDS: PANTOPRAZOLE 40 MG TAB PO SCH ×2 (06:14→16:35)
[2016-04-04] MEDS: MODAFINIL 100 MG TAB PO SCH ×2 (06:14→12:29)
[2016-04-04] MEDS: LEVOTHYROXINE 0.125 MG TAB PO SCH (06:14)
[2016-04-04] MEDS: *HOME MEDS IN MED CART XX SCH ×2 (07:47→20:00)
[2016-04-04] MEDS: DUONEB INH SCH ×2 (08:10→10:41)
[2016-04-04] MEDS: NEB-BUDESONIDE 0.5 MG INH SCH ×2 (08:10→19:14)
[2016-04-04] MEDS: NEB-BROVANA 15 MCG/2 ML INH SCH ×2 (08:10→19:14)
[2016-04-04] MEDS: NEB-NACL 3% 4 ML NEBU INH SCH ×4 (08:11→22:47)
[2016-04-04] MEDS: POLYETHYLENE GLYCOL 17 GM PACKET PO SCH ×2 (09:00→20:21)
[2016-04-04] MEDS: HYDROCORT 2.5% CR 30 GM RECTAL SCH ×2 (09:00→20:18)
[2016-04-04] MEDS: SALINE FLUSH 10 ML FLUSH SCH ×2 (09:10→20:19)
[2016-04-04] MEDS: CITALOPRAM 20 MG TAB PO SCH (09:11)
[2016-04-04] MEDS: ALPRAZOLAM 0.25 MG TAB PO SCH ×3 (09:11→20:18)
[2016-04-04] MEDS: Furosemide 80 MG TAB PO SCH ×2 (09:11→16:35)
[2016-04-04] MEDS: DOCUSATE SOD 100 MG CAP PO SCH ×2 (09:11→20:20)
[2016-04-04] MEDS: THEOPHYLLINE SR 100 MG CAP PO SCH (09:11)
[2016-04-04] MEDS: BISOPROLOL 5 MG TAB PO SCH (09:11)
[2016-04-04] MEDS: PREDNISONE 20 MG TAB PO SCH ×2 (09:12→20:19)
[2016-04-04] MEDS: NINTEDANIB 150 MG PO SCH ×2 (09:12→20:21)
[2016-04-04] MEDS: TUSSIONEX SUSP UDC PO SCH ×2 (09:12→20:19)
[2016-04-04] MEDS: MULTIVITS/MINERALS (THERAGRAN M) TAB PO SCH (09:12)
[2016-04-04] MEDS: NYSTATIN SUSP FOR CPD 120 ML, DIPHENHYDRAMINE (FOR COMPOUND) 120 ML, HYDROCORT SOD SUC ... SWISH.SWAL SCH ×12 (09:13→20:21)
[2016-04-04] MEDS: FLUTICASONE 0.05% NA BTL NARE EACH SCH (09:16)
[2016-04-04] MEDS ORDERED: MISSING DOSE XX ONE (09:20)
[2016-04-04] MEDS: Furosemide 40 MG TAB PO SCH (12:29)
[2016-04-04] MEDS: GUAIFENESIN ER 600 MG TABCR PO SCH ×2 (12:29→20:20)
[2016-04-04] MEDS: NEB-ALBUTEROL 2.5 MG/3 ML INH PRN ×3 (15:16→22:46)
[2016-04-04] MEDS: KCL CR 8 MEQ TAB PO SCH (16:35)
[2016-04-04] MEDS: TEMAZEPAM 15 MG CAP PO PRN (20:19)
[2016-04-05] MEDS: NEB-ALBUTEROL 2.5 MG/3 ML INH PRN ×5 (03:19→22:15)
[2016-04-05] MEDS: SODIUM CHLORIDE 0.9% FLUSH BAG 500 ML IV SCH (05:13)
[2016-04-05] MEDS: PANTOPRAZOLE 40 MG TAB PO SCH ×2 (06:04→16:13)
[2016-04-05] MEDS: MODAFINIL 100 MG TAB PO SCH ×2 (06:04→12:17)
[2016-04-05] MEDS: LEVOTHYROXINE 0.125 MG TAB PO SCH (06:04)
[2016-04-05 06:11] VITALS: BP_SYST 128; RESP 24; TEMP 98.2
[2016-04-05] MEDS: NEB-NACL 3% 4 ML NEBU INH SCH ×4 (07:48→22:15)
[2016-04-05] MEDS: NEB-BROVANA 15 MCG/2 ML INH SCH ×2 (07:48→16:45)
[2016-04-05] MEDS: NEB-BUDESONIDE 0.5 MG INH SCH ×2 (07:49→16:45)
[2016-04-05 08:00] VITALS: BP_SYST 118; RESP 20; TEMP 97.8
[2016-04-05] MEDS: *HOME MEDS IN MED CART XX SCH ×2 (08:00→20:00)
[2016-04-05] MEDS: HYDROCORT 2.5% CR 30 GM RECTAL SCH ×2 (08:36→21:00)
[2016-04-05] MEDS: TUSSIONEX SUSP UDC PO SCH ×2 (08:44→22:02)
[2016-04-05] MEDS: SALINE FLUSH 10 ML FLUSH SCH ×2 (08:44→22:05)
[2016-04-05] MEDS: CITALOPRAM 20 MG TAB PO SCH (08:45)
[2016-04-05] MEDS: DOCUSATE SOD 100 MG CAP PO SCH ×2 (08:45→21:00)
[2016-04-05] MEDS: GUAIFENESIN ER 600 MG TABCR PO SCH ×2 (08:45→22:03)
[2016-04-05] MEDS: PREDNISONE 20 MG TAB PO SCH ×2 (08:45→22:04)
[2016-04-05] MEDS: Furosemide 80 MG TAB PO SCH (08:45)
[2016-04-05] MEDS: ALPRAZOLAM 0.25 MG TAB PO SCH ×3 (08:46→22:02)
[2016-04-05] MEDS: THEOPHYLLINE SR 100 MG CAP PO SCH (08:46)
[2016-04-05] MEDS: MULTIVITS/MINERALS (THERAGRAN M) TAB PO SCH (08:46)
[2016-04-05] MEDS: KCL CR 8 MEQ TAB PO SCH (08:47)
[2016-04-05] MEDS: FLUTICASONE 0.05% NA BTL NARE EACH SCH (08:47)
[2016-04-05] MEDS: BISOPROLOL 5 MG TAB PO SCH (08:47)
[2016-04-05] MEDS: NINTEDANIB 150 MG PO SCH ×2 (08:48→22:05)
[2016-04-05] MEDS: NYSTATIN SUSP FOR CPD 120 ML, DIPHENHYDRAMINE (FOR COMPOUND) 120 ML, HYDROCORT SOD SUC ... SWISH.SWAL SCH ×12 (08:56→21:00)
[2016-04-05] MEDS: POLYETHYLENE GLYCOL 17 GM PACKET PO SCH (08:57)
[2016-04-05] MEDS ORDERED: POLYETHYLENE GLYCOL 17 GM PACKET PO PRN (10:15)
[2016-04-05 10:58] VITALS: BP_SYST 112; RESP 22
[2016-04-05] MEDS: Furosemide 40 MG TAB PO SCH ×2 (12:17→17:00)
[2016-04-05 16:22] VITALS: BP_SYST 126; RESP 20; TEMP 97.3
[2016-04-05] MEDS ORDERED: Furosemide 40 MG TAB PO SCH ×2 (17:00)
[2016-04-05] MEDS ORDERED: KCL CR 8 MEQ TAB PO SCH (21:00)
[2016-04-05 21:54] VITALS: BP_SYST 138; RESP 24; TEMP 97.6
[2016-04-05] MEDS: KCL CR 10 MEQ TAB PO SCH (22:03)
[2016-04-05] MEDS: TEMAZEPAM 15 MG CAP PO PRN (22:04)
[2016-04-06 00:20] VITALS: RESP 36
[2016-04-06] MEDS: SODIUM CHLORIDE 0.9% FLUSH BAG 500 ML IV SCH (05:17)
[2016-04-06] MEDS: PANTOPRAZOLE 40 MG TAB PO SCH ×2 (05:21→16:11)
[2016-04-06] MEDS: MODAFINIL 100 MG TAB PO SCH ×2 (05:21→13:23)
[2016-04-06] MEDS: LEVOTHYROXINE 0.125 MG TAB PO SCH (05:21)
[2016-04-06] MEDS: NEB-ALBUTEROL 2.5 MG/3 ML INH PRN ×5 (05:23→20:01)
[2016-04-06] MEDS: NEB-BUDESONIDE 0.5 MG INH SCH ×2 (07:20→20:01)
[2016-04-06] MEDS: NEB-NACL 3% 4 ML NEBU INH SCH ×3 (07:21→20:01)
[2016-04-06] MEDS: NEB-BROVANA 15 MCG/2 ML INH SCH ×2 (07:21→20:01)
[2016-04-06] MEDS: *HOME MEDS IN MED CART XX SCH ×2 (08:00→20:00)
[2016-04-06 08:19] VITALS: BP_SYST 124; RESP 20; TEMP 97.8
[2016-04-06] MEDS: DOCUSATE SOD 100 MG CAP PO SCH ×2 (09:00→21:00)
[2016-04-06] MEDS: HYDROCORT 2.5% CR 30 GM RECTAL SCH ×2 (09:00→21:00)
[2016-04-06] MEDS ORDERED: ENOXAPARIN 40 MG/0.4 ML SYR SUBQ SCH (09:00)
[2016-04-06] MEDS: KCL CR 10 MEQ TAB PO SCH ×2 (10:08→21:16)
[2016-04-06] MEDS: MULTIVITS/MINERALS (THERAGRAN M) TAB PO SCH (10:08)
[2016-04-06] MEDS: TUSSIONEX SUSP UDC PO SCH ×2 (10:08→21:16)
[2016-04-06] MEDS: BISOPROLOL 5 MG TAB PO SCH (10:08)
[2016-04-06] MEDS: THEOPHYLLINE SR 100 MG CAP PO SCH (10:08)
[2016-04-06] MEDS: CITALOPRAM 20 MG TAB PO SCH (10:09)
[2016-04-06] MEDS: GUAIFENESIN ER 600 MG TABCR PO SCH ×2 (10:09→21:17)
[2016-04-06] MEDS: ALPRAZOLAM 0.25 MG TAB PO SCH ×3 (10:09→21:16)
[2016-04-06] MEDS: Furosemide 40 MG TAB PO SCH ×2 (10:09→16:11)
[2016-04-06] MEDS: PREDNISONE 20 MG TAB PO SCH ×2 (10:09→21:17)
[2016-04-06] MEDS: NYSTATIN SUSP FOR CPD 120 ML, DIPHENHYDRAMINE (FOR COMPOUND) 120 ML, HYDROCORT SOD SUC ... SWISH.SWAL SCH ×12 (10:10→21:17)
[2016-04-06] MEDS: NINTEDANIB 150 MG PO SCH ×2 (10:14→21:17)
[2016-04-06] MEDS: SALINE FLUSH 10 ML FLUSH SCH ×2 (10:14→21:18)
[2016-04-06] MEDS: FLUTICASONE 0.05% NA BTL NARE EACH SCH (10:15)
[2016-04-06 11:23] VITALS: RESP 32
[2016-04-06 12:05] VITALS: BP_SYST 120; RESP 20; TEMP 97.6
[2016-04-06 17:43] VITALS: BP_SYST 116; RESP 18; TEMP 97.9
[2016-04-06 21:07] VITALS: BP_SYST 122; RESP 24; TEMP 97.8
[2016-04-07] VITALS (8 sets, daily range): BP systolic 106–134; RESP 18–26; TEMP 96.2–98.6; BMI 45.1
[2016-04-07] MEDS: NEB-NACL 3% 4 ML NEBU INH SCH ×5 (00:30→22:49)
[2016-04-07] MEDS: SODIUM CHLORIDE 0.9% FLUSH BAG 500 ML IV SCH (05:20)
[2016-04-07] MEDS: NEB-ALBUTEROL 2.5 MG/3 ML INH PRN ×6 (05:37→22:49)
[2016-04-07] MEDS: PANTOPRAZOLE 40 MG TAB PO SCH ×2 (05:54→16:27)
[2016-04-07] MEDS: LEVOTHYROXINE 0.125 MG TAB PO SCH (05:54)
[2016-04-07] MEDS: MODAFINIL 100 MG TAB PO SCH ×2 (05:54→11:58)
[2016-04-07] MEDS: NEB-BUDESONIDE 0.5 MG INH SCH ×2 (07:30→18:21)
[2016-04-07] MEDS: NEB-BROVANA 15 MCG/2 ML INH SCH ×2 (07:30→18:21)
[2016-04-07] MEDS: *HOME MEDS IN MED CART XX SCH ×2 (08:00→20:00)
[2016-04-07] MEDS: DOCUSATE SOD 100 MG CAP PO SCH ×2 (09:00→20:18)
[2016-04-07] MEDS: HYDROCORT 2.5% CR 30 GM RECTAL SCH ×2 (09:00→20:21)
[2016-04-07] MEDS: TUSSIONEX SUSP UDC PO SCH ×2 (09:38→20:19)
[2016-04-07] MEDS: GUAIFENESIN ER 600 MG TABCR PO SCH ×2 (09:39→20:18)
[2016-04-07] MEDS: MULTIVITS/MINERALS (THERAGRAN M) TAB PO SCH (09:40)
[2016-04-07] MEDS: CITALOPRAM 20 MG TAB PO SCH (09:40)
[2016-04-07] MEDS: BISOPROLOL 5 MG TAB PO SCH (09:40)
[2016-04-07] MEDS: Furosemide 40 MG TAB PO SCH ×2 (09:40→16:27)
[2016-04-07] MEDS: ALPRAZOLAM 0.25 MG TAB PO SCH ×3 (09:40→20:19)
[2016-04-07] MEDS: THEOPHYLLINE SR 100 MG CAP PO SCH (09:40)
[2016-04-07] MEDS: PREDNISONE 20 MG TAB PO SCH ×2 (09:41→20:18)
[2016-04-07] MEDS: SALINE FLUSH 10 ML FLUSH SCH ×2 (09:44→20:17)
[2016-04-07] MEDS: FLUTICASONE 0.05% NA BTL NARE EACH SCH (09:44)
[2016-04-07] MEDS: NINTEDANIB 150 MG PO SCH ×2 (09:45→20:19)
[2016-04-07] MEDS: NYSTATIN SUSP FOR CPD 120 ML, DIPHENHYDRAMINE (FOR COMPOUND) 120 ML, HYDROCORT SOD SUC ... SWISH.SWAL SCH ×3 (09:46)
[2016-04-07] MEDS: KCL CR 10 MEQ TAB PO SCH ×2 (09:52→20:19)
[2016-04-07] MEDS: FLUCONAZOLE 100 MG TAB PO SCH (11:58)
[2016-04-07] MEDS: LACTOBACILLUS ACIDOPH CAP PO SCH (20:18)
[2016-04-08] VITALS (7 sets, daily range): BP systolic 102–124; RESP 20–26; TEMP 96.7–97.9
[2016-04-08] MEDS: SODIUM CHLORIDE 0.9% FLUSH BAG 500 ML IV SCH (06:00)
[2016-04-08] MEDS: NEB-BROVANA 15 MCG/2 ML INH SCH ×2 (06:44→19:31)
[2016-04-08] MEDS: NEB-BUDESONIDE 0.5 MG INH SCH ×2 (06:44→19:31)
[2016-04-08] MEDS: NEB-ALBUTEROL 2.5 MG/3 ML INH PRN ×5 (06:44→23:20)
[2016-04-08] MEDS: NEB-NACL 3% 4 ML NEBU INH SCH ×4 (06:44→23:20)
[2016-04-08] MEDS ORDERED: MISSING DOSE XX ONE ×2 (06:45→09:30)
[2016-04-08] MEDS: PANTOPRAZOLE 40 MG TAB PO SCH ×2 (07:07→16:21)
[2016-04-08] MEDS: MODAFINIL 100 MG TAB PO SCH ×2 (07:08→11:36)
[2016-04-08] MEDS: LEVOTHYROXINE 0.125 MG TAB PO SCH (07:09)
[2016-04-08] MEDS: HYDROCORT 2.5% CR 30 GM RECTAL SCH ×2 (09:00→21:00)
[2016-04-08] MEDS: *HOME MEDS IN MED CART XX SCH ×2 (09:23→20:00)
[2016-04-08] MEDS: TUSSIONEX SUSP UDC PO SCH ×2 (09:37→21:22)
[2016-04-08] MEDS: NINTEDANIB 150 MG PO SCH ×2 (09:37→21:17)
[2016-04-08] MEDS: ALPRAZOLAM 0.25 MG TAB PO SCH ×3 (09:38→21:22)
[2016-04-08] MEDS: SALINE FLUSH 10 ML FLUSH SCH ×2 (09:40→21:22)
[2016-04-08] MEDS: FLUTICASONE 0.05% NA BTL NARE EACH SCH (09:43)
[2016-04-08] MEDS: BISOPROLOL 5 MG TAB PO SCH (09:53)
[2016-04-08] MEDS: GUAIFENESIN ER 600 MG TABCR PO SCH ×2 (09:54→21:16)
[2016-04-08] MEDS: CITALOPRAM 20 MG TAB PO SCH (09:54)
[2016-04-08] MEDS: LACTOBACILLUS ACIDOPH CAP PO SCH ×2 (09:54→21:16)
[2016-04-08] MEDS: FLUCONAZOLE 100 MG TAB PO SCH (09:54)
[2016-04-08] MEDS: DOCUSATE SOD 100 MG CAP PO SCH ×2 (09:54→21:16)
[2016-04-08] MEDS: PREDNISONE 20 MG TAB PO SCH ×2 (09:54→21:15)
[2016-04-08] MEDS: MULTIVITS/MINERALS (THERAGRAN M) TAB PO SCH (09:54)
[2016-04-08] MEDS: Furosemide 40 MG TAB PO SCH (09:55)
[2016-04-08] MEDS: KCL CR 10 MEQ TAB PO SCH ×2 (09:55→21:15)
[2016-04-08] MEDS: THEOPHYLLINE SR 100 MG CAP PO SCH (09:56)
[2016-04-08] MEDS ORDERED: KCL CR 20 MEQ TAB PO ONE (12:20)
[2016-04-08] MEDS: Furosemide 20 MG TAB PO SCH (16:22)
[2016-04-09] VITALS: RESP 28
[2016-04-09] MEDS: SODIUM CHLORIDE 0.9% FLUSH BAG 500 ML IV SCH (06:00)
[2016-04-09] MEDS: LEVOTHYROXINE 0.125 MG TAB PO SCH (06:54)
[2016-04-09] MEDS: MODAFINIL 100 MG TAB PO SCH ×2 (06:54→13:27)
[2016-04-09] MEDS: PANTOPRAZOLE 40 MG TAB PO SCH ×2 (06:54→17:01)
[2016-04-09] MEDS: NEB-ALBUTEROL 2.5 MG/3 ML INH PRN ×5 (07:06→22:37)
[2016-04-09] MEDS: NEB-BUDESONIDE 0.5 MG INH SCH ×2 (07:07→18:58)
[2016-04-09] MEDS: NEB-BROVANA 15 MCG/2 ML INH SCH ×2 (07:07→18:58)
[2016-04-09] MEDS: NEB-NACL 3% 4 ML NEBU INH SCH ×4 (07:07→22:37)
[2016-04-09 08:01] VITALS: BP_SYST 120; RESP 24; TEMP 97.9
[2016-04-09] MEDS: SALINE FLUSH 10 ML FLUSH SCH ×2 (08:32→20:07)
[2016-04-09] MEDS: NINTEDANIB 150 MG PO SCH ×2 (08:32→20:11)
[2016-04-09] MEDS: TUSSIONEX SUSP UDC PO SCH ×2 (08:33→20:10)
[2016-04-09] MEDS: CITALOPRAM 20 MG TAB PO SCH (08:33)
[2016-04-09] MEDS: ALPRAZOLAM 0.25 MG TAB PO SCH ×3 (08:33→21:54)
[2016-04-09] MEDS: MULTIVITS/MINERALS (THERAGRAN M) TAB PO SCH (08:33)
[2016-04-09] MEDS: LACTOBACILLUS ACIDOPH CAP PO SCH ×2 (08:34→20:08)
[2016-04-09] MEDS: Furosemide 20 MG TAB PO SCH ×2 (08:34→17:01)
[2016-04-09] MEDS: BISOPROLOL 5 MG TAB PO SCH (08:34)
[2016-04-09] MEDS: KCL CR 10 MEQ TAB PO SCH ×2 (08:34→20:08)
[2016-04-09] MEDS: PREDNISONE 20 MG TAB PO SCH ×2 (08:34→20:10)
[2016-04-09] MEDS: THEOPHYLLINE SR 100 MG CAP PO SCH (08:34)
[2016-04-09] MEDS: GUAIFENESIN ER 600 MG TABCR PO SCH ×2 (08:35→20:09)
[2016-04-09] MEDS: HYDROCORT 2.5% CR 30 GM RECTAL SCH (08:35)
[2016-04-09] MEDS: FLUCONAZOLE 100 MG TAB PO SCH (08:35)
[2016-04-09] MEDS: DOCUSATE SOD 100 MG CAP PO SCH ×2 (08:35→21:54)
[2016-04-09] MEDS: FLUTICASONE 0.05% NA BTL NARE EACH SCH (09:00)
[2016-04-09] MEDS: *HOME MEDS IN MED CART XX SCH ×2 (09:11→19:55)
[2016-04-09 11:24] VITALS: BP_SYST 122; RESP 24; TEMP 98
[2016-04-09 15:27] VITALS: BP_SYST 132; RESP 24; TEMP 96.7
[2016-04-09 19:53] VITALS: BP_SYST 138; RESP 24; TEMP 96.4
[2016-04-09] MEDS: SPIRONOLACTONE 25 MG TAB PO SCH (20:09)
[2016-04-09] MEDS: TEMAZEPAM 15 MG CAP PO PRN (21:54)
[2016-04-09 23:01] VITALS: BP_SYST 132; RESP 20; TEMP 97.2
[2016-04-10 00:10] VITALS: RESP 36
[2016-04-10] MEDS: SODIUM CHLORIDE 0.9% FLUSH BAG 500 ML IV SCH (05:36)
[2016-04-10] MEDS: LEVOTHYROXINE 0.125 MG TAB PO SCH (07:42)
[2016-04-10] MEDS: PANTOPRAZOLE 40 MG TAB PO SCH ×2 (07:42→16:43)
[2016-04-10] MEDS: MODAFINIL 100 MG TAB PO SCH ×2 (07:42→13:12)
[2016-04-10 08:03] VITALS: BP_SYST 130; RESP 24; TEMP 96.5
[2016-04-10] MEDS: NEB-BROVANA 15 MCG/2 ML INH SCH ×2 (08:10→18:46)
[2016-04-10] MEDS: NEB-BUDESONIDE 0.5 MG INH SCH ×2 (08:11→18:46)
[2016-04-10] MEDS: NEB-ALBUTEROL 2.5 MG/3 ML INH PRN ×5 (08:11→22:23)
[2016-04-10] MEDS: NEB-NACL 3% 4 ML NEBU INH SCH ×4 (08:11→22:23)
[2016-04-10] MEDS ORDERED: MISSING DOSE XX ONE (08:35)
[2016-04-10] MEDS: CITALOPRAM 20 MG TAB PO SCH (08:56)
[2016-04-10] MEDS: PREDNISONE 20 MG TAB PO SCH ×2 (08:56→20:45)
[2016-04-10] MEDS: MULTIVITS/MINERALS (THERAGRAN M) TAB PO SCH (08:56)
[2016-04-10] MEDS: BISOPROLOL 5 MG TAB PO SCH (08:56)
[2016-04-10] MEDS: SPIRONOLACTONE 25 MG TAB PO SCH ×2 (08:57→20:42)
[2016-04-10] MEDS: ALPRAZOLAM 0.25 MG TAB PO SCH ×3 (08:57→22:16)
[2016-04-10] MEDS: LACTOBACILLUS ACIDOPH CAP PO SCH ×2 (08:57→20:42)
[2016-04-10] MEDS: TUSSIONEX SUSP UDC PO SCH ×2 (08:57→20:45)
[2016-04-10] MEDS: FLUCONAZOLE 100 MG TAB PO SCH (08:57)
[2016-04-10] MEDS: KCL CR 10 MEQ TAB PO SCH ×2 (08:58→20:43)
[2016-04-10] MEDS: DOCUSATE SOD 100 MG CAP PO SCH ×2 (08:58→20:43)
[2016-04-10] MEDS: THEOPHYLLINE SR 100 MG CAP PO SCH (08:58)
[2016-04-10] MEDS: GUAIFENESIN ER 600 MG TABCR PO SCH ×2 (08:58→20:43)
[2016-04-10] MEDS: ENOXAPARIN 40 MG/0.4 ML SYR SUBQ SCH (08:59)
[2016-04-10] MEDS: NINTEDANIB 150 MG PO SCH ×2 (09:00→20:40)
[2016-04-10] MEDS: FLUTICASONE 0.05% NA BTL NARE EACH SCH (09:01)
[2016-04-10] MEDS: SALINE FLUSH 10 ML FLUSH SCH ×2 (09:13→20:00)
[2016-04-10] MEDS: *HOME MEDS IN MED CART XX SCH ×2 (09:13→20:00)
[2016-04-10] MEDS: Furosemide 20 MG TAB PO SCH ×2 (10:07→16:44)
[2016-04-10 10:34] VITALS: BP_SYST 126; RESP 20; TEMP 96.2
[2016-04-10 14:46] VITALS: BP_SYST 118; RESP 22; TEMP 96.8
[2016-04-10 19:49] VITALS: BP_SYST 104; RESP 20; TEMP 99.5
[2016-04-10] MEDS: TEMAZEPAM 15 MG CAP PO PRN (22:17)
[2016-04-10 22:27] VITALS: RESP 31
[2016-04-11] VITALS: RESP 19
[2016-04-11] MEDS: NEB-ALBUTEROL 2.5 MG/3 ML INH PRN ×6 (02:36→22:21)
[2016-04-11] MEDS: SODIUM CHLORIDE 0.9% FLUSH BAG 500 ML IV SCH (06:00)
[2016-04-11] MEDS: MODAFINIL 100 MG TAB PO SCH ×2 (06:58→12:28)
[2016-04-11] MEDS: PANTOPRAZOLE 40 MG TAB PO SCH ×2 (06:58→16:33)
[2016-04-11] MEDS: LEVOTHYROXINE 0.125 MG TAB PO SCH (06:58)
[2016-04-11] MEDS: NEB-BUDESONIDE 0.5 MG INH SCH ×2 (07:17→19:29)
[2016-04-11] MEDS: NEB-BROVANA 15 MCG/2 ML INH SCH ×2 (07:17→19:29)
[2016-04-11] MEDS: NEB-NACL 3% 4 ML NEBU INH SCH ×4 (07:19→22:21)
[2016-04-11] MEDS: SALINE FLUSH 10 ML FLUSH SCH ×2 (08:00→20:00)
[2016-04-11] MEDS: *HOME MEDS IN MED CART XX SCH ×2 (08:00→20:00)
[2016-04-11 08:02] VITALS: BP_SYST 120; RESP 20; TEMP 97.6
[2016-04-11] MEDS: NINTEDANIB 150 MG PO SCH ×2 (09:10→22:05)
[2016-04-11] MEDS: TUSSIONEX SUSP UDC PO SCH ×2 (09:10→20:46)
[2016-04-11] MEDS: SPIRONOLACTONE 25 MG TAB PO SCH ×2 (09:12→20:47)
[2016-04-11] MEDS: GUAIFENESIN ER 600 MG TABCR PO SCH ×2 (09:13→20:47)
[2016-04-11] MEDS: LACTOBACILLUS ACIDOPH CAP PO SCH ×2 (09:13→20:46)
[2016-04-11] MEDS: CITALOPRAM 20 MG TAB PO SCH (09:13)
[2016-04-11] MEDS: Furosemide 20 MG TAB PO SCH ×2 (09:13→16:32)
[2016-04-11] MEDS: THEOPHYLLINE SR 100 MG CAP PO SCH (09:13)
[2016-04-11] MEDS: ALPRAZOLAM 0.25 MG TAB PO SCH ×3 (09:14→21:04)
[2016-04-11] MEDS: MULTIVITS/MINERALS (THERAGRAN M) TAB PO SCH (09:14)
[2016-04-11] MEDS: DOCUSATE SOD 100 MG CAP PO SCH ×2 (09:14→21:04)
[2016-04-11] MEDS: PREDNISONE 20 MG TAB PO SCH ×2 (09:14→20:49)
[2016-04-11] MEDS: KCL CR 10 MEQ TAB PO SCH ×2 (09:14→20:46)
[2016-04-11] MEDS: FLUCONAZOLE 100 MG TAB PO SCH (09:15)
[2016-04-11] MEDS: ENOXAPARIN 40 MG/0.4 ML SYR SUBQ SCH (09:21)
[2016-04-11] MEDS: BISOPROLOL 5 MG TAB PO SCH (09:21)
[2016-04-11] MEDS: FLUTICASONE 0.05% NA BTL NARE EACH SCH (09:21)
[2016-04-11 09:23] VITALS: Ht 175.3 cm; Wt 128.6 kg
[2016-04-11 12:00] VITALS: BP_SYST 118; RESP 20; TEMP 97.8
[2016-04-11 15:36] VITALS: BP_SYST 116; RESP 20; TEMP 97.7
[2016-04-11] MEDS ORDERED: MISSING DOSE XX ONE (16:50)
[2016-04-11] MEDS: POLYETHYLENE GLYCOL 17 GM PACKET PO PRN (18:32)
[2016-04-11 20:15] VITALS: BP_SYST 120; RESP 20; TEMP 97.3
[2016-04-11] MEDS: TEMAZEPAM 15 MG CAP PO PRN (21:04)
[2016-04-11 21:53] VITALS: BP_SYST 104; RESP 20; TEMP 97
[2016-04-12 00:12] VITALS: RESP 22
[2016-04-12] MEDS: SODIUM CHLORIDE 0.9% FLUSH BAG 500 ML IV SCH (06:00)
[2016-04-12 06:27] VITALS: BP_SYST 110; RESP 24; TEMP 97.8
[2016-04-12] MEDS: PANTOPRAZOLE 40 MG TAB PO SCH ×2 (06:33→16:24)
[2016-04-12] MEDS: LEVOTHYROXINE 0.125 MG TAB PO SCH (06:33)
[2016-04-12] MEDS: MODAFINIL 100 MG TAB PO SCH ×2 (06:34→11:54)
[2016-04-12] MEDS: NEB-ALBUTEROL 2.5 MG/3 ML INH PRN ×5 (07:25→22:25)
[2016-04-12] MEDS: NEB-NACL 3% 4 ML NEBU INH SCH ×4 (07:25→22:26)
[2016-04-12] MEDS: NEB-BROVANA 15 MCG/2 ML INH SCH ×2 (07:25→18:37)
[2016-04-12] MEDS: NEB-BUDESONIDE 0.5 MG INH SCH ×2 (07:25→18:37)
[2016-04-12] MEDS: *HOME MEDS IN MED CART XX SCH ×2 (08:00→20:00)
[2016-04-12] MEDS: SALINE FLUSH 10 ML FLUSH SCH ×2 (08:00→20:00)
[2016-04-12] MEDS: NINTEDANIB 150 MG PO SCH ×2 (08:33→20:38)
[2016-04-12] MEDS: BISOPROLOL 5 MG TAB PO SCH (08:34)
[2016-04-12] MEDS: MULTIVITS/MINERALS (THERAGRAN M) TAB PO SCH (08:34)
[2016-04-12] MEDS: GUAIFENESIN ER 600 MG TABCR PO SCH ×2 (08:34→20:39)
[2016-04-12] MEDS: CITALOPRAM 20 MG TAB PO SCH (08:35)
[2016-04-12] MEDS: DOCUSATE SOD 100 MG CAP PO SCH ×2 (08:35→20:39)
[2016-04-12] MEDS: Furosemide 20 MG TAB PO SCH ×2 (08:36→16:25)
[2016-04-12] MEDS: LACTOBACILLUS ACIDOPH CAP PO SCH ×2 (08:36→20:40)
[2016-04-12] MEDS: SPIRONOLACTONE 25 MG TAB PO SCH ×2 (08:36→20:40)
[2016-04-12] MEDS: THEOPHYLLINE SR 100 MG CAP PO SCH (08:37)
[2016-04-12] MEDS: KCL CR 10 MEQ TAB PO SCH ×2 (08:37→20:40)
[2016-04-12] MEDS: ALPRAZOLAM 0.25 MG TAB PO SCH ×3 (08:37→20:39)
[2016-04-12] MEDS: FLUCONAZOLE 100 MG TAB PO SCH (08:38)
[2016-04-12] MEDS: TUSSIONEX SUSP UDC PO SCH ×2 (08:38→20:39)
[2016-04-12] MEDS: ENOXAPARIN 40 MG/0.4 ML SYR SUBQ SCH (08:39)
[2016-04-12] MEDS: FLUTICASONE 0.05% NA BTL NARE EACH SCH (09:37)
[2016-04-12] MEDS ORDERED: MISSING DOSE XX ONE ×2 (09:40→19:10)
[2016-04-12] MEDS: PREDNISONE 20 MG TAB PO SCH ×2 (10:25→20:39)
[2016-04-12 10:37] VITALS: BP_SYST 116; RESP 20; TEMP 97.9
[2016-04-12] MEDS ORDERED: AQUAPHOR OINT 1.75 OZ TOPICAL PRN (12:00)
[2016-04-12 15:58] VITALS: BP_SYST 114; RESP 18; TEMP 97.6
[2016-04-12 20:33] VITALS: BP_SYST 130; RESP 22; TEMP 98.2
[2016-04-12] MEDS: TEMAZEPAM 15 MG CAP PO PRN (20:39)
[2016-04-12] MEDS: POLYETHYLENE GLYCOL 17 GM PACKET PO PRN (20:39)
[2016-04-12 22:31] VITALS: BP_SYST 120; RESP 20; TEMP 98
[2016-04-13] VITALS (7 sets, daily range): BP systolic 112–120; RESP 18–36; TEMP 97.1–98.5
[2016-04-13] MEDS: NEB-BUDESONIDE 0.5 MG INH SCH ×2 (05:14→18:28)
[2016-04-13] MEDS: NEB-BROVANA 15 MCG/2 ML INH SCH ×2 (05:14→18:28)
[2016-04-13] MEDS: NEB-NACL 3% 4 ML NEBU INH SCH ×4 (05:15→22:15)
[2016-04-13] MEDS: NEB-ALBUTEROL 2.5 MG/3 ML INH PRN ×5 (05:15→22:15)
[2016-04-13] MEDS: LEVOTHYROXINE 0.125 MG TAB PO SCH (05:17)
[2016-04-13] MEDS: MODAFINIL 100 MG TAB PO SCH ×2 (05:17→12:55)
[2016-04-13] MEDS: SODIUM CHLORIDE 0.9% FLUSH BAG 500 ML IV SCH (07:48)
[2016-04-13] MEDS: SALINE FLUSH 10 ML FLUSH SCH ×2 (07:48→20:00)
[2016-04-13] MEDS: *HOME MEDS IN MED CART XX SCH ×2 (09:29→20:00)
[2016-04-13] MEDS: PANTOPRAZOLE 40 MG TAB PO SCH ×2 (09:30→16:36)
[2016-04-13] MEDS: NINTEDANIB 150 MG PO SCH ×2 (09:31→21:16)
[2016-04-13] MEDS: TUSSIONEX SUSP UDC PO SCH ×2 (09:32→21:14)
[2016-04-13] MEDS: GUAIFENESIN ER 600 MG TABCR PO SCH ×2 (09:32→21:15)
[2016-04-13] MEDS: MULTIVITS/MINERALS (THERAGRAN M) TAB PO SCH (09:32)
[2016-04-13] MEDS: FLUCONAZOLE 100 MG TAB PO SCH (09:32)
[2016-04-13] MEDS: Furosemide 20 MG TAB PO SCH ×3 (09:33→21:00)
[2016-04-13] MEDS: LACTOBACILLUS ACIDOPH CAP PO SCH ×2 (09:33→21:15)
[2016-04-13] MEDS: ALPRAZOLAM 0.25 MG TAB PO SCH ×3 (09:33→21:15)
[2016-04-13] MEDS: DOCUSATE SOD 100 MG CAP PO SCH ×2 (09:33→21:15)
[2016-04-13] MEDS: SPIRONOLACTONE 25 MG TAB PO SCH ×2 (09:33→21:15)
[2016-04-13] MEDS: KCL CR 10 MEQ TAB PO SCH ×2 (09:33→21:16)
[2016-04-13] MEDS: BISOPROLOL 5 MG TAB PO SCH (09:33)
[2016-04-13] MEDS: FLUTICASONE 0.05% NA BTL NARE EACH SCH (09:34)
[2016-04-13] MEDS: PREDNISONE 20 MG TAB PO SCH ×2 (09:34→21:15)
[2016-04-13] MEDS: CITALOPRAM 20 MG TAB PO SCH (09:34)
[2016-04-13] MEDS: THEOPHYLLINE SR 100 MG CAP PO SCH (09:34)
[2016-04-13] MEDS: ENOXAPARIN 40 MG/0.4 ML SYR SUBQ SCH (09:35)
[2016-04-13] MEDS: MAG HYDROX 30 ML UDC PO PRN (09:36)
[2016-04-13] MEDS: TEMAZEPAM 15 MG CAP PO PRN (21:16)
[2016-04-14 00:13] VITALS: RESP 26
[2016-04-14] MEDS: NEB-ALBUTEROL 2.5 MG/3 ML INH PRN ×6 (02:20→22:54)
[2016-04-14] MEDS: SODIUM CHLORIDE 0.9% FLUSH BAG 500 ML IV SCH (06:00)
[2016-04-14] MEDS: MODAFINIL 100 MG TAB PO SCH ×2 (06:50→13:25)
[2016-04-14] MEDS: PANTOPRAZOLE 40 MG TAB PO SCH ×2 (06:50→15:04)
[2016-04-14] MEDS: LEVOTHYROXINE 0.125 MG TAB PO SCH (06:50)
[2016-04-14] MEDS: NEB-BROVANA 15 MCG/2 ML INH SCH ×2 (07:12→19:07)
[2016-04-14] MEDS: NEB-BUDESONIDE 0.5 MG INH SCH ×2 (07:12→19:07)
[2016-04-14] MEDS: NEB-NACL 3% 4 ML NEBU INH SCH ×4 (07:12→22:55)
[2016-04-14] MEDS: ACETAMINOPHEN 325 MG TAB PO PRN ×3 (07:22→21:40)
[2016-04-14] MEDS: SALINE FLUSH 10 ML FLUSH SCH ×2 (07:48→21:39)
[2016-04-14] MEDS: *HOME MEDS IN MED CART XX SCH ×2 (07:48→20:00)
[2016-04-14 08:21] VITALS: BP_SYST 124; RESP 18; TEMP 97.1
[2016-04-14] MEDS: NINTEDANIB 150 MG PO SCH ×2 (10:27→21:41)
[2016-04-14] MEDS: FLUTICASONE 0.05% NA BTL NARE EACH SCH (10:27)
[2016-04-14] MEDS: CITALOPRAM 20 MG TAB PO SCH (10:28)
[2016-04-14] MEDS: MULTIVITS/MINERALS (THERAGRAN M) TAB PO SCH (10:28)
[2016-04-14] MEDS: THEOPHYLLINE SR 100 MG CAP PO SCH (10:28)
[2016-04-14] MEDS: ENOXAPARIN 40 MG/0.4 ML SYR SUBQ SCH (10:28)
[2016-04-14] MEDS: TUSSIONEX SUSP UDC PO SCH ×2 (10:29→21:38)
[2016-04-14] MEDS: BISOPROLOL 5 MG TAB PO SCH (10:29)
[2016-04-14] MEDS: SPIRONOLACTONE 25 MG TAB PO SCH ×2 (10:29→21:39)
[2016-04-14] MEDS: GUAIFENESIN ER 600 MG TABCR PO SCH ×2 (10:29→21:39)
[2016-04-14] MEDS: PREDNISONE 20 MG TAB PO SCH ×2 (10:30→21:40)
[2016-04-14] MEDS: KCL CR 10 MEQ TAB PO SCH ×2 (10:31→21:39)
[2016-04-14] MEDS: Furosemide 20 MG TAB PO SCH (10:31)
[2016-04-14] MEDS: ALPRAZOLAM 0.25 MG TAB PO SCH ×3 (10:31→21:39)
[2016-04-14] MEDS: LACTOBACILLUS ACIDOPH CAP PO SCH ×2 (10:32→21:39)
[2016-04-14] MEDS: FLUCONAZOLE 100 MG TAB PO SCH (10:32)
[2016-04-14] MEDS: DOCUSATE SOD 100 MG CAP PO SCH ×2 (10:32→21:40)
[2016-04-14 11:05] VITALS: BP_SYST 122; RESP 18; TEMP 97.6
[2016-04-14] MEDS ORDERED: Furosemide 20 MG TAB PO SCH ×2 (14:19→18:00)
[2016-04-14 15:08] VITALS: BP_SYST 118; RESP 20; TEMP 98.1
[2016-04-14] MEDS ORDERED: Furosemide 40 MG/4 ML VIAL IV SCH (17:30)
[2016-04-14 20:48] VITALS: BP_SYST 122; RESP 20; TEMP 98.2
[2016-04-14] MEDS: POLYETHYLENE GLYCOL 17 GM PACKET PO PRN (21:38)
[2016-04-14] MEDS: TEMAZEPAM 15 MG CAP PO PRN (21:40)
[2016-04-14 23:12] VITALS: RESP 22
[2016-04-15] VITALS (8 sets, daily range): BP systolic 122–128; RESP 20–24; TEMP 96.7–97.7
[2016-04-15] MEDS: LEVOTHYROXINE 0.125 MG TAB PO SCH (05:42)
[2016-04-15] MEDS: SODIUM CHLORIDE 0.9% FLUSH BAG 500 ML IV SCH (05:42)
[2016-04-15] MEDS: PANTOPRAZOLE 40 MG TAB PO SCH ×2 (05:42→16:32)
[2016-04-15] MEDS: MODAFINIL 100 MG TAB PO SCH ×2 (05:42→12:50)
[2016-04-15] MEDS: Furosemide 40 MG/4 ML VIAL IV SCH ×3 (05:42→16:32)
[2016-04-15] MEDS: NEB-BROVANA 15 MCG/2 ML INH SCH ×2 (06:46→18:38)
[2016-04-15] MEDS: NEB-BUDESONIDE 0.5 MG INH SCH ×2 (06:46→18:38)
[2016-04-15] MEDS: NEB-NACL 3% 4 ML NEBU INH SCH ×4 (06:46→22:57)
[2016-04-15] MEDS: NEB-ALBUTEROL 2.5 MG/3 ML INH PRN ×5 (06:46→22:57)
[2016-04-15] MEDS: *HOME MEDS IN MED CART XX SCH ×2 (08:00→20:00)
[2016-04-15] MEDS: ENOXAPARIN 40 MG/0.4 ML SYR SUBQ SCH (09:00)
[2016-04-15] MEDS: FLUTICASONE 0.05% NA BTL NARE EACH SCH (10:05)
[2016-04-15] MEDS: NINTEDANIB 150 MG PO SCH ×2 (10:06→20:31)
[2016-04-15] MEDS: SPIRONOLACTONE 25 MG TAB PO SCH ×2 (10:07→20:30)
[2016-04-15] MEDS: CITALOPRAM 20 MG TAB PO SCH (10:07)
[2016-04-15] MEDS: LACTOBACILLUS ACIDOPH CAP PO SCH ×2 (10:07→20:29)
[2016-04-15] MEDS: KCL CR 10 MEQ TAB PO SCH ×2 (10:07→20:30)
[2016-04-15] MEDS: DOCUSATE SOD 100 MG CAP PO SCH ×2 (10:07→20:29)
[2016-04-15] MEDS: GUAIFENESIN ER 600 MG TABCR PO SCH ×2 (10:08→20:29)
[2016-04-15] MEDS: ALPRAZOLAM 0.25 MG TAB PO SCH ×3 (10:08→20:29)
[2016-04-15] MEDS: TUSSIONEX SUSP UDC PO SCH ×2 (10:08→20:32)
[2016-04-15] MEDS: PREDNISONE 20 MG TAB PO SCH ×2 (10:08→20:29)
[2016-04-15] MEDS: MULTIVITS/MINERALS (THERAGRAN M) TAB PO SCH (10:09)
[2016-04-15] MEDS: THEOPHYLLINE SR 100 MG CAP PO SCH (10:09)
[2016-04-15] MEDS: BISOPROLOL 5 MG TAB PO SCH (10:09)
[2016-04-15] MEDS: SALINE FLUSH 10 ML FLUSH SCH ×2 (10:09→20:31)
[2016-04-15] MEDS: MAG HYDROX 30 ML UDC PO PRN (10:12)
[2016-04-15] MEDS: SOD CHL NASAL SPR 45ML NARE EACH SCH ×2 (12:51→20:31)
[2016-04-15] MEDS: PETROLATUM TOPICAL SCH (12:51)
[2016-04-15] MEDS: TEMAZEPAM 15 MG CAP PO PRN (22:56)
[2016-04-16] VITALS (7 sets, daily range): BP systolic 118–138; RESP 20–24; TEMP 96.3–98.6
[2016-04-16] MEDS: NEB-ALBUTEROL 2.5 MG/3 ML INH PRN ×6 (02:43→22:31)
[2016-04-16] MEDS: SODIUM CHLORIDE 0.9% FLUSH BAG 500 ML IV SCH ×2 (06:00→21:43)
[2016-04-16] MEDS: MODAFINIL 100 MG TAB PO SCH ×2 (06:16→12:37)
[2016-04-16] MEDS: PANTOPRAZOLE 40 MG TAB PO SCH ×2 (06:17→16:29)
[2016-04-16] MEDS: LEVOTHYROXINE 0.125 MG TAB PO SCH (06:17)
[2016-04-16] MEDS: NEB-BROVANA 15 MCG/2 ML INH SCH ×2 (07:50→18:20)
[2016-04-16] MEDS: NEB-BUDESONIDE 0.5 MG INH SCH ×2 (07:50→18:20)
[2016-04-16] MEDS: NEB-NACL 3% 4 ML NEBU INH SCH ×4 (07:51→22:31)
[2016-04-16] MEDS: *HOME MEDS IN MED CART XX SCH ×2 (08:00→20:00)
[2016-04-16] MEDS: SALINE FLUSH 10 ML FLUSH SCH ×2 (08:48→21:21)
[2016-04-16] MEDS: SOD CHL NASAL SPR 45ML NARE EACH SCH ×2 (08:49→21:21)
[2016-04-16] MEDS: PETROLATUM TOPICAL SCH (08:49)
[2016-04-16] MEDS: NINTEDANIB 150 MG PO SCH ×2 (08:50→21:21)
[2016-04-16] MEDS: TUSSIONEX SUSP UDC PO SCH ×2 (08:50→21:21)
[2016-04-16] MEDS: BISOPROLOL 5 MG TAB PO SCH (08:51)
[2016-04-16] MEDS: MULTIVITS/MINERALS (THERAGRAN M) TAB PO SCH (08:51)
[2016-04-16] MEDS: THEOPHYLLINE SR 100 MG CAP PO SCH (08:51)
[2016-04-16] MEDS: ALPRAZOLAM 0.25 MG TAB PO SCH ×3 (08:51→21:22)
[2016-04-16] MEDS: PREDNISONE 20 MG TAB PO SCH ×2 (08:53→21:23)
[2016-04-16] MEDS: SPIRONOLACTONE 25 MG TAB PO SCH ×2 (08:53→21:22)
[2016-04-16] MEDS: DOCUSATE SOD 100 MG CAP PO SCH ×2 (08:54→21:22)
[2016-04-16] MEDS: GUAIFENESIN ER 600 MG TABCR PO SCH ×2 (08:54→21:22)
[2016-04-16] MEDS: CITALOPRAM 20 MG TAB PO SCH (08:54)
[2016-04-16] MEDS: LACTOBACILLUS ACIDOPH CAP PO SCH ×2 (08:54→21:22)
[2016-04-16] MEDS: FLUTICASONE 0.05% NA BTL NARE EACH SCH (09:00)
[2016-04-16] MEDS ORDERED: Furosemide 20 MG TAB PO ONE (13:15)
[2016-04-16] MEDS: Furosemide 20 MG TAB PO SCH (18:48)
[2016-04-16] MEDS: TEMAZEPAM 15 MG CAP PO PRN (21:36)
[2016-04-17] MEDS: MODAFINIL 100 MG TAB PO SCH ×2 (06:16→12:13)
[2016-04-17] MEDS: LEVOTHYROXINE 0.125 MG TAB PO SCH (06:16)
[2016-04-17] MEDS: PANTOPRAZOLE 40 MG TAB PO SCH ×2 (06:16→16:13)
[2016-04-17] MEDS: ACETAMINOPHEN 325 MG TAB PO PRN ×3 (06:17→16:12)
[2016-04-17] MEDS: NEB-BROVANA 15 MCG/2 ML INH SCH ×2 (06:46→20:09)
[2016-04-17] MEDS: NEB-ALBUTEROL 2.5 MG/3 ML INH PRN ×5 (06:46→22:38)
[2016-04-17] MEDS: NEB-NACL 3% 4 ML NEBU INH SCH ×4 (06:46→22:39)
[2016-04-17] MEDS: NEB-BUDESONIDE 0.5 MG INH SCH ×2 (06:46→20:09)
[2016-04-17 07:52] VITALS: BP_SYST 128; RESP 20; TEMP 96.8
[2016-04-17] MEDS: *HOME MEDS IN MED CART XX SCH ×2 (08:00→19:11)
[2016-04-17] MEDS: Furosemide 20 MG TAB PO SCH ×2 (09:00→17:00)
[2016-04-17] MEDS: FLUTICASONE 0.05% NA BTL NARE EACH SCH (09:00)
[2016-04-17] MEDS: SALINE FLUSH 10 ML FLUSH SCH ×2 (09:04→20:49)
[2016-04-17] MEDS: TUSSIONEX SUSP UDC PO SCH ×2 (09:04→20:49)
[2016-04-17] MEDS: GUAIFENESIN ER 600 MG TABCR PO SCH ×2 (09:06→20:50)
[2016-04-17] MEDS: BISOPROLOL 5 MG TAB PO SCH (09:06)
[2016-04-17] MEDS: THEOPHYLLINE SR 100 MG CAP PO SCH (09:06)
[2016-04-17] MEDS: PREDNISONE 20 MG TAB PO SCH ×2 (09:07→20:50)
[2016-04-17] MEDS: ALPRAZOLAM 0.25 MG TAB PO SCH ×3 (09:09→20:51)
[2016-04-17] MEDS: SPIRONOLACTONE 25 MG TAB PO SCH ×2 (09:09→20:50)
[2016-04-17] MEDS: LACTOBACILLUS ACIDOPH CAP PO SCH ×2 (09:09→20:49)
[2016-04-17] MEDS: MULTIVITS/MINERALS (THERAGRAN M) TAB PO SCH (09:09)
[2016-04-17] MEDS: CITALOPRAM 20 MG TAB PO SCH (09:10)
[2016-04-17] MEDS: PETROLATUM TOPICAL SCH (09:10)
[2016-04-17] MEDS: DOCUSATE SOD 100 MG CAP PO SCH ×2 (09:10→20:50)
[2016-04-17] MEDS: SOD CHL NASAL SPR 45ML NARE EACH SCH ×2 (09:10→20:51)
[2016-04-17] MEDS: NINTEDANIB 150 MG PO SCH ×2 (09:11→20:51)
[2016-04-17 11:08] VITALS: BP_SYST 124; RESP 20; TEMP 97.7
[2016-04-17 15:06] VITALS: BP_SYST 128; RESP 20; TEMP 97.7
[2016-04-17 20:19] VITALS: BP_SYST 138; RESP 22; TEMP 98.3
[2016-04-17] MEDS: TEMAZEPAM 15 MG CAP PO PRN (22:49)
[2016-04-18] MEDS: SODIUM CHLORIDE 0.9% FLUSH BAG 500 ML IV SCH (06:00)
[2016-04-18 07:01] VITALS: BP_SYST 130; RESP 20; TEMP 98.4
[2016-04-18] MEDS: LEVOTHYROXINE 0.125 MG TAB PO SCH (07:40)
[2016-04-18] MEDS: PANTOPRAZOLE 40 MG TAB PO SCH (07:40)
[2016-04-18] MEDS: MODAFINIL 100 MG TAB PO SCH ×2 (07:40→14:19)
[2016-04-18] MEDS: NEB-BUDESONIDE 0.5 MG INH SCH (08:00)
[2016-04-18] MEDS: *HOME MEDS IN MED CART XX SCH (08:00)
[2016-04-18] MEDS: NEB-NACL 3% 4 ML NEBU INH SCH ×2 (08:00→10:41)
[2016-04-18] MEDS: NEB-ALBUTEROL 2.5 MG/3 ML INH PRN ×3 (08:00→15:20)
[2016-04-18] MEDS: NEB-BROVANA 15 MCG/2 ML INH SCH (08:00)
[2016-04-18] MEDS: SALINE FLUSH 10 ML FLUSH SCH (08:00)
[2016-04-18] MEDS: TUSSIONEX SUSP UDC PO SCH (10:22)
[2016-04-18] MEDS: DOCUSATE SOD 100 MG CAP PO SCH (10:23)
[2016-04-18] MEDS: PREDNISONE 20 MG TAB PO SCH (10:23)
[2016-04-18] MEDS: CITALOPRAM 20 MG TAB PO SCH (10:24)
[2016-04-18] MEDS: Furosemide 20 MG TAB PO SCH (10:24)
[2016-04-18] MEDS: SPIRONOLACTONE 25 MG TAB PO SCH (10:24)
[2016-04-18] MEDS: GUAIFENESIN ER 600 MG TABCR PO SCH (10:24)
[2016-04-18] MEDS: MULTIVITS/MINERALS (THERAGRAN M) TAB PO SCH (10:25)
[2016-04-18] MEDS: ALPRAZOLAM 0.25 MG TAB PO SCH (10:25)
[2016-04-18] MEDS: LACTOBACILLUS ACIDOPH CAP PO SCH (10:25)
[2016-04-18] MEDS: THEOPHYLLINE SR 100 MG CAP PO SCH (10:25)
[2016-04-18] MEDS: FLUTICASONE 0.05% NA BTL NARE EACH SCH (10:26)
[2016-04-18] MEDS: NINTEDANIB 150 MG PO SCH (10:26)
[2016-04-18] MEDS: SOD CHL NASAL SPR 45ML NARE EACH SCH (10:26)
[2016-04-18] MEDS: PETROLATUM TOPICAL SCH (10:27)
[2016-04-18] MEDS: BISOPROLOL 5 MG TAB PO SCH (10:30)
[2016-04-18 12:35] VITALS: BP_SYST 118; RESP 28; TEMP 98.4
== END 2016-04-18 16:20 | disposition home health service (06) | DRG 196 ==
LOC: ENRESERVTM → ENRESERVDT → ENRESERV → ER 19:58 → ENPENDDIS 21:57 → DELPENDDIS 21:57 → EMR 21:57 → CCU 03-19 01:23 → PCU2 03-24 19:01 → 4NT 04-07 22:20
PROVIDERS: ADMIT Family Medicine; ATTEND Family Medicine
DX: J84.112 Idiopathic pulmonary fibrosis (principal); J15.0 Pneumonia due to Klebsiella pneumoniae; J96.21 Acute and chronic respiratory failure with hypoxia; J84.89 Other specified interstitial pulmonary diseases; I11.9 Hypertensive heart disease without heart failure; J44.0 Chronic obstructive pulmonary disease with (acute) lower respiratory infection; Z99.81 Dependence on supplemental oxygen; B37.9 Candidiasis, unspecified; Z68.42 Body mass index [BMI] 45.0-49.9, adult; J44.1 Chronic obstructive pulmonary disease with (acute) exacerbation; E66.01 Morbid (severe) obesity due to excess calories; G47.33 Obstructive sleep apnea (adult) (pediatric); E03.9 Hypothyroidism, unspecified; G25.81 Restless legs syndrome; R55 Syncope and collapse; F41.9 Anxiety disorder, unspecified; F32.9 Major depressive disorder, single episode, unspecified; K59.00 Constipation, unspecified; B00.1 Herpesviral vesicular dermatitis; R32 Unspecified urinary incontinence; K64.4 Residual hemorrhoidal skin tags; E87.6 Hypokalemia; Z79.82 Long term (current) use of aspirin; Z87.891 Personal history of nicotine dependence; Z66 Do not resuscitate
CPT/HCPCS: 36415; 36600; 71010; 71260; 80048; 80051; 80053; 80076; 80198; 81001; 82330; 82553; 82803; 82947; 83735; 83880; 84100; 84484; 85025; 85379; 86403; 87071; 87077; 87088; 87186; 93005; 94640; 94660; 94762; 94799; 96372; 96374; 99223; 99232; 99233; 99239